=== PATIENT | male | born 1955 | race Caucasian/White ===

== ENCOUNTER → 2018-06-13 13:46 | Outpatient (CLI) | payer OTHER, SELFPAY ==
--- NOTE | 2018-06-13 13:49 | DI.RAD.S_ITS ---
PROCEDURE: XR KNEE LT 3V INDICATIONS: knee pain TECHNIQUE: 3 views of the knee were acquired. COMPARISON: [facility], CR, TIB/FIB 2V RIGHT, 05/16/2013, 8:17. [facility], RG, XR KNEE 2V LEFT, 06/13/2004, 12:36. [facility], CR, KNEE 3V RIGHT, 08/22/2011, 12:33. [facility], , XR KNEE RT 3V, 06/13/2018, 13:33. FINDINGS: Bones: Postoperative change of the left proximal tibia can be seen, with 2 screws inserted from laterally. No findings of hardware failure or hardware loosening are seen. On the sunrise view, there is mild patellofemoral joint space narrowing seen. Osteophyte formation can be seen along the margins of the patella. There is mild medial femorotibial joint space narrowing seen, with associated remodeling changes including subchondral sclerosis and osteophyte formation along the jointline. Soft tissues: No joint effusion. No suspicious soft tissue calcifications. IMPRESSION: Postoperative changes are seen. Age-appropriate degenerative changes are seen. Dictated by: Paolo Farrell M.D. on 06/13/2018 at 14:35 Approved by: Paolo Farrell M.D. on 06/13/2018 at 14:37
--- NOTE | 2018-06-13 13:49 | DI.RAD.S_ITS ---
PROCEDURE: XR KNEE RT 3V INDICATIONS: knee pain TECHNIQUE: 3 views of the knee were acquired. COMPARISON: [facility], CR, TIB/FIB 2V RIGHT, 05/16/2013, 8:17. [facility], CR, XR KNEE ARTHRITIC SERIES BI, 02/09/2017, 11:18. [facility], CR, XR KNEE LT 3V, 06/13/2018, 13:33. [facility], CR, KNEE 3V RIGHT, 08/22/2011, 12:33. FINDINGS: Bones: No fractures or dislocations. No suspicious bony lesions. There is minimal medial femorotibial joint space narrowing seen, with associated remodeling changes including subchondral sclerosis and osteophyte formation along the jointline. On the sunrise view, there is moderate to severe medial patellofemoral joint space narrowing seen. Osteophyte formation can be seen along the margins of the patella. Soft tissues: No joint effusion. No suspicious soft tissue calcifications. IMPRESSION: Osteoarthritic degenerative changes are seen, which are most prominent involving the medial patellofemoral compartment. The degenerative changes have progressed compared to 2010. Dictated by: Paolo Farrell M.D. on 06/13/2018 at 14:37 Approved by: Paolo Farrell M.D. on 06/13/2018 at 14:38
== END ==
PROVIDERS: PCP Family Medicine; Visit Provider Family Medicine
DX: M25.562 Pain in left knee (principal); M25.561 Pain in right knee; M17.11 Unilateral primary osteoarthritis, right knee
CPT/HCPCS: 73562

== ENCOUNTER 2018-07-09 10:44 | Day surgery (SDC) | payer OTHER, SELFPAY ==
[2018-07-09] VITALS (7 sets, daily range): BP systolic 86–132; BP diastolic 48–70; PULSE 47–53; RESP 13–16; TEMP 36.6–37.5; O2SAT 94–99; BMI 35.7
--- NOTE | 2018-07-09 | PATH_ITS ---
[facility] Accession Number: [id number] . 01 Material submitted: . RECTAL POLYP . 02 Diagnosis: Biopsy Rectal Polyp: Hyperplastic polyp involving two biopsy fragments. MRV/07/11/2018 . 02 Electronically signed: . Edenilson Vuong MD, Pathologist NPI- [id number] . 01 Gross description: . RECTAL POLYP: Received in formalin are multiple fragment(s) of bautista, soft tissue measuring 0.6 x 0.4 x 0.3 cm in aggregate submitted entirely in 1 cassette(s) /CKI /CKI . 02 Pathologist provided ICD-10: K62.1 . 02 CPT . 595911 Specimen Comment: A duplicate report has been generated due to demographic updates. Performed at: 01 [facility] [address] [place] [address], [place], [place] [id number] MD Richy Soares MD Phone: [phone] Performed at: [address] [facility] [address] [place], [place] [id number] MD Sebastien Aguero MD Phone: [phone]
[2018-07-09] MEDS: SODIUM CHLORIDE 0.9% 1,000 ML 200 ML IV (10:59)
--- NOTE | 2018-07-09 11:49 | PM.HP.1 ---
History of Present Illness Date Patient Seen: 07/09/18 Time Patient Seen: 11:50 Chief complaint: [id number] Narrative: Patient is a gentleman here for screening colonoscopy. He did not take his a.m. meds despite instructions. He did take his beta-richie last night. His last colonoscopy was 5 years ago. He has been having them periodically to the presence of polyps. Patient History Medical History Depression (Chronic) HLD (hyperlipidemia) (Chronic) Hypertension (Chronic) Psoriasis (Chronic) Sleep apnea (Chronic) Surgical History Stented coronary artery (Resolved) Status post arthroscopy Family & Social History Family History: Reviewed 07/09/18 by Len Justin MD Social History: household members spouse Tobacco & Substance use: Smoking Status Former smoker alcohol intake current Meds Home Medications Medication Instructions Recorded Confirmed Type aspirin 81 mg PO QDAY #0 01/14/18 07/09/18 History atorvastatin [Lipitor] 40 mg PO HS #0 01/14/18 07/09/18 History citalopram 20 mg PO QDAY #30 tab 01/14/18 07/09/18 Rx clopidogrel [Plavix] 75 mg PO QDAY #0 01/14/18 06/07/18 History trazodone 100 mg PO HS #0 01/14/18 06/07/18 History amlodipine 5 mg 01/29/18 06/07/18 History metoprolol succinate 12.5 mg 01/29/18 06/07/18 History lisinopril [Zestril] 40 mg PO QDAY #90 tab 03/25/18 07/09/18 Rx clonazepam 1 mg tablet 0.5 mg PO BID PRN #30 tab 05/28/18 07/09/18 Rx Allergies Allergy/AdvReac Type Severity Reaction Status Date / Time No Known Allergies Allergy Uncoded 06/07/18 11:52 Review of Systems Review of Systems All systems reviewed & are unremarkable except as noted in HPI and below Gastrointestinal Comments: Had a major bleed after prior colonoscopy. Exam Vital Signs (past 8 hours): - 07/09/18 11:00 Temperature 98 F Pulse Rate 53 L Respiratory Rate 16 Blood Pressure 132/70 Pulse Oximetry 99 Oxygen Delivery Method Room Air Narrative Exam Narrative: Operative her weight no apparent distress lungs clear no rales or rhonchi heart regular rate and rhythm a murmur gallop abdomen is protuberant soft nontender without mass. No hernias appreciated. Alert and oriented x3. Assessment & Plan Plan: Assessment/Plan Narrative: Plan for screening colonoscopy. I have discussed the procedure and the rationale with the patient including risks of bleeding, perforation which would necessitate a major operation, failure to find remove all lesions and the potential to tattoo. They appeared to understand and wished to proceed.
--- NOTE | 2018-07-09 11:53 | PM.PREOP ---
Pre-operative Note Interval Note Pre-op Check: Yes History & Physical exam performed today by Physician Changes: No ASA Class (for procedural sedation): III
[2018-07-09] MEDS: MIDAZOLAM 5 MG/5 ML VIAL IV (12:18)
[2018-07-09] MEDS: fentaNYL 250 MCG/5 ML INJ IV (12:19)
--- NOTE | 2018-07-09 12:22 | PM.OP.ENDO ---
Operative Date/Time/Diagnoses Date of procedure: 07/09/18 Time of procedure: 12:22 Pre-op diagnosis: Screening exam. Last colonoscopy 5-7 years Post-op diagnosis: same (One polyp in the rectum.) Procedure & Clinicians Study performed: Colonoscopy with cold biopsy Same procedure as scheduled: Yes Indications: Screening Surgeon: Len Justin Procedure Notes SCOAP/Timeout: Performed Procedure in detail: The patient was placed in the left lateral decubitus position and underwent IV sedation directed by the surgeon consisting of fentanyl and Versed. Digital exam was unremarkable. I could only feel the back half of the prostate but it felt normal.. The scope was inserted and advanced through the rectum into the sigmoid, descending, transverse, and ascending colon. The cecum was reached by a applying pressure in inserting a stiffener. identified by the ileocecal valve and the appendiceal opening. The scope was gradually brought out. The only Polyp was found in the rectum. This was at about 15 cm from the anal verge. This was repeatedly biopsied and removed. The scope ultimately was retroflexed in the rectum. The appearance was unremarkable except for prominent venous vascularity but not true hemorrhoids.. The scope was removed and the patient tolerated the procedure well Scope withdrawal time: Almost 6 min Sedation minutes: 20 Findings: polyp (Rectum) Specimen(s): other (Polyp) Complications: none Recommendations: Colonscopy in 5 years Disposition: PACU
== END 2018-07-09 13:11 | disposition home or self-care (01) ==
PROVIDERS: Family Provider Specialist; PCP Family Medicine; Visit Provider Specialist
PROC: 0DJD8ZZ Inspection of Lower Intestinal Tract, Via Natural or Artificial Opening Endoscopic (ICD-10-PCS; CPT 45378; principal; 2018-07-09 11:45)
DX: Z12.11 Encounter for screening for malignant neoplasm of colon (principal); K62.1 Rectal polyp
CPT/HCPCS: 45380; 99152; J2250; J3010

== ENCOUNTER 2018-07-17 14:00 | Outpatient (RCR) | payer OTHER, SELFPAY ==
[2018-01-29 08:10] VITALS: BP 140/76; BP 140/78; O2SAT 98; BMI 37.5
--- NOTE | 2018-01-29 11:18 | CR.IEVALNOTE ---
Addendum entered and electronically signed by Jennifer Hernandes R.N. 01/29/18 13:41: * Original Note: Addendum entered by Jennifer Hernandes R.N. 01/29/18 12:35: * Original Note: CR Initial Assessment Report 12.06.17 stent x2-circ and om CR Cardiac Rehab Initial Assessment Start: 01/29/18 08:01 Freq: Status: Active Protocol: Document 01/29/18 08:10 [facility] (Rec: 01/29/18 08:17 [facility] [id number]) Cardiac Rehabilitation Exercise Risk Risk Moderate % 12.06.2017 AICD No Pacemaker No Heart Rhythm NSR Left Arm Blood Pressure (90/60-120/80 mmHg) 140/76 H Right Arm Blood Pressure (90/60-120/80 mmHg) 140/78 H Right Resting Heart Rate: 58 Resting HR Comment: monitored Target Heart Rate: 78 Pulse Rhythm: Regular Pulse Assessment Method Pulse Ox/Monitor Respiratory Effort Non-Labored Lung Sounds: Clear bilaterally Pulse Oximetry (91-100 %) 98 CR Pre Exercise Evaluation Orientation Self Pulse Check DEVON PRE Scale Exercise Safety Equipment Orientation Warm Up/Cool Down Cardiac Rehabilitation Nutrition Evaluation Recent Lipid Blood Test Yes Date Blood Test Drawn 01/29/18 Total Cholesterol 126 Triglycerides 142 HDL 45 LDL 53 Lipid Medications Yes: LIPITOR 40MG Goal for Lipids LOWER TRIGLYCERIDES History of Diabetes No Cardiac Rehabilitation Weight Management Plan Height 175.26 cm Weight 115.212 kg Body Mass Index (BMI) 37.5 Girth Measurement (in inches) (cm) 45.5 Patient Goal(s) Lose 1-2 of Girth Lose 5-10 lbs Body Weight BMI Goal of 19-25 Vitamins & Supplements Yes Use Occasionally Intake Type beer whiskey Amount Occasionally Nutrition Evaluation Referral to Diabetes Education No Nurse/Patient Discussion Yes Diet Discussion discussed eating protein with fruit. limiting white rice sugg. basmati. Patient Following Diet Plan Yes Diet Dash Mediterranean Low-Carb Patient's Nutritional Goals almond milk, healthy oils, portion control. 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 No Hearing Ability Normal Visual Impairment No Limitations Education on Intake Chest Pain Short of Breath Lightheaded or Dizzy Musculoskeletal Pain General Malaise Tobacco Use Former, Quit <6 Months Goal/Quit Date 11.11.2017 Pack Per-Day History 3/4 x 15years Tobacco Use History Discussion Ask Assess Advise Assist Arrange Tobacco Type Used cigarettes, vaping, nicotene pouch Environmental Exposure paint fumes, smoke fumes; solvent fumes Referred to Smoking Cessation Class No CR Individual Education & Counseling Yes Educational Class Schedule Given Yes Hx Hypertension Yes Goal <130/80 Goal of BP <130/80 Yes Medications Reconciled Yes CR Psychosocial Evaluation Goal HX OF ANXIETY AND DEPRESSION Identifies Stressors Work is a good stressor though coworkers giving him a hard time with lifting heavy loads. and Jamil going through some difficult times. Psych Consult Yes Discussion with Patient Yes Psychotropic Medications Yes: Saw a psychiatrist in [place] PHQ9 Score 4 HQ Scoring Scale 0-4 = None PHQ >9 Yes PCP Notified No Comment Sees Dr. Pichardo for anxiety issues and Rx Positive Support work, 3 children and grandchildren Situation Having some difficulty with . 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 angiogram showed blockage in circ and om . stent x2. Does have a HX of anginia and SOB. At times does have pain in L chest. Alerted to let us know if this occurs at home or CR. No Treatment Change Yes: Please Continue with Cardiopulmonary Rehabilitation as Ordered Document 01/29/18 10:45 [facility] (Rec: 01/29/18 11:07 [facility] [id number]) Cardiac Rehabilitation Exercise Fall Risk History of Falling (Immediate or No Previous) Secondary Diagnosis (More Than 2 Medical Yes Diagnoses) Ambulatory Aid None/bed rest/nurse assist IV/Heparin Lock No Gait/Transferring Normal/bedrest/immobile Mental Status Oriented to own ability Score Total 15 Risk Level Low Fall Risk Action Implement [place] Fall Risk Precautions Comment Will start on physio ball with saucer next to railing and assess on ball. [place] to machines. Assistive Devices None Jaime Activity Status Index 9.89 Home Exercise No Symptoms: Joint Pain Body Alignment Posture Good Posture Ambulation Assistive Device None Orthotic/Prosthetic Devices or Brace: No Comment knees and shoulders Exercise TM METS 3.29 Angina with Exercise no Exercise Tolerance Good CR Pre Exercise Evaluation Patient Short-term Goal(s) be able to lift 8+# in 6 wks by slowly increasing weight and level of resistance band to help increase strength and endurance. 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
[2018-02-28 15:16] VITALS: BP 122/58
--- NOTE | 2018-02-28 15:48 | CR.REVALNOTE ---
CR Initial RE-Assessment Report 3..18 STENT X2 CIRC & OM CR Cardiac Rehab Re-Assessment Start: 02/28/18 15:16 Freq: Status: Active Protocol: Document 02/28/18 15:16 [facility] (Rec: 02/28/18 15:27 [facility] [id number]) Cardiac Rehab Exercise Risk Re-Eval Risk Moderate Heart Rhythm NSR Left Arm Blood Pressure (90/60-120/80 mmHg) 122/58 H Blood Pressure Method Manual Cuff/Auscultation Right Resting Heart Rate: 66 Target Heart Rate: 86 Target Heart Rate Comment: HIGH HR 125 Strength: Normal Pulse Rhythm: Regular Respiratory Effort Non-Labored Respiratory Depth Normal Angina with Exercise INTERMITTENT SPOKE WITH MD STARTED ON ISOSORBIDE AND HAS HAD RELIEF Cardiac Rehab Nutrition Re-Eval Lipids Re-Drawn No Lipid Medications Yes History of Diabetes No Weight 108.273 kg Progress to Weight Goal 7# WEIGHT LOSS Dietary Consult Yes Nurse/Patient Discussion Yes Nutrition Class Yes Dietary Goal verbalized by Patient Yes Progress Note PORTION CONTROL. LESS ALCOHOL Education Tobacco Use N/A Hypertension 130/62 Medications LISINOPRIL Education:Instruct OCHOA YES Medication Reconciled RECENT CHANGE WITH ISIOSORBIDE CR Psychosocial Re-Evaluation Progress to Goal BECAUSE HE IS ABLE TO DO MORE HE IS FEELING MORE CONFEDENT. HE IS LOOKING FORWARD TO HIS STRESS TEST SO HE CAN RETURN TO WORK. Stress Managed YES WITH EXERCISE Psych Consult No Stress Management Class Yes Uses Stress Management Skills Yes Coping Techniques Yes Relaxation Techniques Yes Positive Support Yes Note MUSCH REDUCED CP WITH NEW MED CR Psychosocial Provider Eval Treatment Prescribed for Individual Yes Needs No Treatment Change Yes: Please Continue with Cardiopulmonary Rehabilitation as Ordered Document 02/28/18 15:31 [facility] (Rec: 02/28/18 15:43 [facility] [id number]) CR Lifestyle Re-Assessment Home Exercise none Achieved Exercise Re-Evaluation KEELEY MET Goal 2.6 Nustep MET Goal 4.1 BioDex MET Goal 2.53 Rower MET Goal 10.72 Treadmill MET Goal 9.5 RPE 15 Weights 10 Bands 5 % Improvement TM 10.25; RW 11.25; BD 3.5; NS 5.0; KEELEY 3.25 Number/Value 12 LVL 6 Progress to Goal INCREASE TOLERATED % Improvement 189 Short Term Goal attained, using 10# weights, will continue to encourage to increase weights. 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 Has acheived JAIME score on Rower. Is close to Jaime score on TM.
[2018-04-17 15:33] VITALS: BP 142/72
--- NOTE | 2018-04-17 15:38 | CR.REVALNOTE ---
CR RE Assessment Report . STEMT X 2 CR Cardiac Rehab Re-Assessment Start: 02/28/18 15:16 Freq: Status: Active Protocol: Document 02/28/18 15:16 [facility] (Rec: 02/28/18 15:27 [facility] [id number]) Cardiac Rehab Exercise Risk Re-Eval Risk Moderate Heart Rhythm NSR Left Arm Blood Pressure (90/60-120/80 mmHg) 122/58 H Blood Pressure Method Manual Cuff/Auscultation Right Resting Heart Rate: 66 Target Heart Rate: 86 Target Heart Rate Comment: HIGH HR 125 Strength: Normal Pulse Rhythm: Regular Respiratory Effort Non-Labored Respiratory Depth Normal Angina with Exercise INTERMITTENT SPOKE WITH MD STARTED ON ISOSORBIDE AND HAS HAD RELIEF Cardiac Rehab Nutrition Re-Eval Lipids Re-Drawn No Lipid Medications Yes History of Diabetes No Weight 108.273 kg Progress to Weight Goal 7# WEIGHT LOSS Dietary Consult Yes Nurse/Patient Discussion Yes Nutrition Class Yes Dietary Goal verbalized by Patient Yes Progress Note PORTION CONTROL. LESS ALCOHOL Education Tobacco Use N/A Hypertension 130/62 Medications LISINOPRIL Education:Instruct OCHOA YES Medication Reconciled RECENT CHANGE WITH ISIOSORBIDE CR Psychosocial Re-Evaluation Progress to Goal BECAUSE HE IS ABLE TO DO MORE HE IS FEELING MORE CONFEDENT. HE IS LOOKING FORWARD TO HIS STRESS TEST SO HE CAN RETURN TO WORK. Stress Managed YES WITH EXERCISE Psych Consult No Stress Management Class Yes Uses Stress Management Skills Yes Coping Techniques Yes Relaxation Techniques Yes Positive Support Yes Note MUSCH REDUCED CP WITH NEW MED CR Psychosocial Provider Eval Treatment Prescribed for Individual Yes Needs No Treatment Change Yes: Please Continue with Cardiopulmonary Rehabilitation as Ordered Document 02/28/18 15:31 [facility] (Rec: 02/28/18 15:43 [facility] [id number]) CR Lifestyle Re-Assessment Home Exercise none Achieved Exercise Re-Evaluation KEELEY MET Goal 2.6 Nustep MET Goal 4.1 BioDex MET Goal 2.53 Rower MET Goal 10.72 Treadmill MET Goal 9.5 RPE 15 Weights 10 Bands 5 % Improvment TM 10.25; RW 11.25; BD 3.5; NS 5.0; KEELEY 3.25 Number/Value 12 LVL 6 Progress to Goal INCREASE TOLERATED % Improvement 189 Short Term Goal attained, using 10# weights, will continue to encourage to increase weights. 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 Has acheived JAIME score on Rower. Is close to Jaime score on TM. Document 04/17/18 15:18 [facility] (Rec: 04/17/18 15:30 [facility] [id number]) Cardiac Rehab Exercise Risk Re-Eval Dx: 3.15.18STENT X2-OM CIRC. HX: HLD Comment: Sessions 2-16 Right Resting Heart Rate: 69 Target Heart Rate: 94 Target Heart Rate Comment: High HR 127 Strength: Normal Pulse Rhythm: Regular Angina with Exercise No CR Lifestyle Re-Assessment Home Exercise Yes Mode Comment Walking Duration Comment 30 min Frequency Comment 6x/wk Achieved Exercise Re-Evaluation Rower MET Goal 18.71 Treadmill MET Goal 13.01 RPE 15 Weights 12 Bands 6 Equipment Goals TM 14.0; RW 19.0 Number/Value 15 LVL 7 Progress to Goal INCREASE TOLERATED % Improvement TM 299% RW 487% Has been out for 3 weeks, today Mets achieved: TM 3.95, RW 10.29. States that he is taking it easy because he has been working hard at work and exercising at home. Short Term Goal attained, using 12# weights, is back to performing all job functions including lifting upto 50 lbs. 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 Has been walking daily at home, and has an exercise plan at home. Document 04/17/18 15:33 [facility] (Rec: 04/17/18 15:38 [facility] [id number]) Cardiac Rehab Exercise Risk Re-Eval Risk Moderate Heart Rhythm NSR Left Arm Blood Pressure (90/60-120/80 mmHg) 142/72 H Blood Pressure Method Manual Cuff/Auscultation Angina with Exercise NO Cardiac Rehab Nutrition Re-Eval Lipids Re-Drawn No Weight 107.501 kg CR Psychosocial Re-Evaluation Progress to Goal PAST HIS WORK STRESS TEST SO MOTIVATED FOR CHANGE Stress Managed YES WITH WORK AGAIN Psych Consult No Uses Stress Management Skills Yes Coping Techniques Yes CR Psychosocial Provider Eval Treatment Prescribed for Individual Yes Needs No Treatment Change Yes: Please Continue with Cardiopulmonary Rehabilitation as Ordered Date 04/17/18
[2018-05-16 15:42] VITALS: BP 144/64
== END 2018-07-18 15:00 ==
LOC: CAR 14:00
PROVIDERS: Family Provider Specialist; PCP Family Medicine; Visit Provider Internal Medicine Cardiovascular Disease
DX: R06.02 Shortness of breath (principal)
CPT/HCPCS: 93798

== ENCOUNTER → 2018-08-30 11:26 | Outpatient (CLI) | payer OTHER, SELFPAY ==
[2018-08-30 12:16] LABS: Add Manual Diff / Slide Review NO; Eosinophils Percent Auto 0.8 % (2-4); Hematocrit 46.1 % (41-53); Hemoglobin 15.5 g/dL (13.5-17.5); Lymphocytes Percent Auto 27.5 % (25-40); Mean Corpuscular HGB Conc 33.6 % (30-36); Mean Corpuscular Hemoglobin 30.5 PG (26-34); Mean Corpuscular Volume 90.8 fL (80-100); Monocytes Percent Auto 8.5 % (3-14); Neutrophils Absolute Auto 4000 /uL (3000-5900); Neutrophils Percent Auto 62.2 % (50-75); Platelet Count 205 X10^3/uL (150-400); Red Blood Cell Count 5.08 X10^6/uL (4.5-5.9); Red Cell Distribution Width 13.9 % (11.6-14.8); White Blood Cell Count 6.4 X10^3/uL (4.5-11.0)
[2018-08-30 12:27] LABS: Hemoglobin A1C% w Est Avg Glu 5.5 % (4.0-6.0)
[2018-08-30 12:33] LABS: Alanine Aminotransferase 31 IU/L (21-72); Albumin 4.5 g/dL (3.5-5.0); Albumin Globulin Ratio 1.7 (1.0-2.8); Alkaline Phosphatase 67 U/L (38-126); Aspartate Aminotransferase 27 IU/L (17-59); BUN Creatinine Ratio 20.9 (6-22); Bilirubin Total 1.1 mg/dL (0.2-1.3); Blood Urea Nitrogen 23 mg/dL (9-20); Calcium 9.5 mg/dL (8.4-10.2); Carbon Dioxide 31 mmol/L (22-32); Chloride 104 mmol/L (98-107); Cholesterol 125 mg/dL (140-199); Estimated Glomerular Filt Rate > 60.0 mL/min (>60); Globulin 2.7 g/dL (1.7-4.1); Glucose 101 mg/dL (80-110); HDL Cholesterol 55 mg/dL (40-60); HEMOLYSIS < 15 (0-50); LDL Cholesterol Calculated 59 mg/dL (<100); Potassium 4.8 mmol/L (3.4-5.1); Sodium 144 mmol/L (137-145); Total Protein 7.2 g/dL (6.3-8.2); Triglycerides 57 mg/dL (35-150)
[2018-08-30 12:34] LABS: C-Reactive Protein Quant < 0.5 mg/dL (<1.0)
[2018-08-30 13:33] LABS: Free T3, Triiodothyronine Free 2.78 pg/mL (2.77-5.27)
[2018-08-30 13:34] LABS: Free T4, Direct Thyroxine 0.88 ng/dL (0.78-2.19)
[2018-08-30 13:47] LABS: Thyroid Stimulating Hormone 1.71 uIU/mL (0.47-4.68)
[2018-08-31 14:28] LABS: Anti Thyroglobulin Antibody < 1 IU/mL (< 2); Thyroid Peroxidase Antibodies 2 IU/mL (< 9)
[2018-08-31 15:01] LABS: Dehydroepiandrosterone Sulfate 305 mcg/dL (24-244)
[2018-09-01 15:05] LABS: Homocysteine 8.4 umol/L (< 11.4)
== END ==
PROVIDERS: PCP Family Medicine; Visit Provider Internal Medicine Cardiovascular Disease
DX: R94.02 Abnormal brain scan (principal); F34.1 Dysthymic disorder; E78.5 Hyperlipidemia, unspecified
CPT/HCPCS: 36415; 80053; 80061; 82627; 82728; 83036; 83090; 84439; 84443; 84481; 85025; 86140; 86376; 86800

== ENCOUNTER 2018-10-31 15:36 | Observation (INO) | payer OTHER, SELFPAY ==
[2018-10-31] VITALS (7 sets, daily range): BP systolic 108–168; BP diastolic 46–78; PULSE 50–77; RESP 12–21; TEMP 36.2–37; O2SAT 94–98; BMI 36.9
--- NOTE | 2018-10-31 | DI.MRI.S_ITS ---
PROCEDURE: MR STROKE Pre- and post-contrast brain MRI, non-contrast brain MR angiogram, pre- and postcontrast neck MR angiogram INDICATIONS: Amnesia TECHNIQUE: Brain: Noncontrast axial T1 spin echo, axial T2 fast spin echo, sagittal and axial FLAIR, coronal T2 fast spin echo, axial gradient echo, axial diffusion and ADC through the brain. After the administration of contrast, axial 3D VIBE of the cranial vasculature and brain. Brain MRA: Non-contrast 3-D time of flight MR angiogram, with multiple fupnpfx-prwuwecdd-zyccohzioj (MIP) reformats performed. Neck MRA: Axial and sagittal TruFISP through the neck. Coronal dynamic MR angiogram during administration of contrast in the arterial and venous phases, with 3-dimenstional hjlqlad-ptaxbnkph-laftsgrbuk (MIP) reformats constructed from subtraction images. COMPARISON: None. FINDINGS: Image quality: Excellent. BRAIN: CSF spaces: Ventricles are normal in size and shape. Basal cisterns are patent. No extra-axial fluid collections. Brain: No intracranial bleeds or mass effects. Scattered small white matter signal changes, probably represent chronic microvascular ischemic disease, versus statistically less likely demyelination or other infectious, inflammatory, neurodegenerative etiology, technically nonspecific. Gama-white matter interface is normal. Diffusion weighted images show no acute ischemic insults. Brainstem appears normal. Normal intravascular flow voids are present. No abnormal intracranial enhancement. Skull and face: Calvarial marrow signal is normal. Orbits appear normal. Sinuses: Sinuses and mastoids are clear except for a small right maxillary antrum polyp or mucous retention cyst. BRAIN MR ANGIOGRAM: Anterior circulation: Intracranial internal carotid arteries are normal in size and enhancement. The flow within the paired anterior cerebral arteries is normal and symmetric. The flow within the middle cerebral arteries is normal and symmetric. The anterior communicating artery is seen. No stenoses, occlusions, or aneurysms. Posterior circulation: There is dominant right vertebral artery. The distal left vertebral artery is not seen, probably atretic versus occluded. Basilar artery within normal limits. The flow within the posterior cerebral arteries is normal and symmetric. NECK MR ANGIOGRAM: Carotids: Great vessels demonstrate a conventional anatomy as they arise from the aortic arch. The origins of the common carotid arteries appear patent. The calibers and courses of both common carotid arteries are normal. 20-30% focal stenosis at the origin of the left internal carotid artery. No right ICA stenosis seen. Posterior circulation: High-grade focal stenosis at the origin of the right vertebral artery. The origin of the left vertebral artery is not well-visualized. 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 Normal appearing basilar artery. Miscellaneous: Subclavian arteries appear patent. Pre-contrast images through the neck show no soft tissue abnormalities. IMPRESSION: BRAIN MRI: No evidence of acute ischemia. Diffuse small white matter signal changes, probably represent chronic microvascular ischemic disease, versus statistically less likely demyelination or other infectious, inflammatory, neurodegenerative etiology, technically nonspecific. BRAIN MR ANGIOGRAM: Negative exam NECK MR ANGIOGRAM: Dominant right vertebral artery. 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 20-30% focal stenosis at the origin of the left ICA. No right ICA stenosis. High-grade focal stenosis at the origin of the right vertebral artery probably 80% or greater. Dictated by: Tyree Moore M.D. on 11/01/2018 at 9:36 Approved by: Tyree Moore M.D. on 11/01/2018 at 9:46
--- NOTE | 2018-10-31 15:42 | DI.CT.S_ITS ---
PROCEDURE: CT HEAD/BRAIN WO CON INDICATIONS: Confusion TECHNIQUE: Noncontrast 4.5 mm thick angled axial sections acquired from the foramen magnum to the vertex, with coronal and sagittal reformats. For radiation dose reduction, the following was used: automated exposure control, adjustment of mA and/or kV according to patient size. COMPARISON: None. FINDINGS: Image quality: Excellent. CSF spaces: Basal cisterns are patent. No extra-axial fluid collections. Ventricles are normal in size and shape. Brain: No midline shift. No intracranial masses or hemorrhage. Gama-white matter interface is normal. A subtle area of low attenuation within the deep white matter of the right frontal lobe is present (image 17, series 2). A similar appearance is noted within the deep white matter of the left frontal lobe (image 20, series 2). Mild basal ganglia calcifications are noted. Skull and face: Calvarium and visualized facial bones are intact, without suspicious lesions. Sinuses: Visualized sinuses and mastoids are clear. IMPRESSION: 1. No acute intracranial hemorrhage. 2. Probable chronic small vessel ischemic changes. Dictated by: Cristhian Manrique M.D. on 10/31/2018 at 15:15 Approved by: Cristhian Manrique M.D. on 10/31/2018 at 15:17
--- NOTE | 2018-10-31 16:03 | ED_ITS ---
HPI - Neuro Symptoms/Deficit General Chief Complaint: Neuro Symptoms/Deficit Stated Complaint: CONFUSION Time Seen by Provider: 10/31/18 15:42 Source: patient and family Mode of arrival: ambulatory Limitations: no limitations History of Present Illness HPI Narrative: Patient is a 63-year-old male here with his for evaluation of being confused. Patient's states that the last time she saw him normal was last evening. She did not see him this morning. 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 Fall we could extrapolate his last known normal was approximately 130 this afternoon but this is uncertain. Patient here with confusion and not being able to remember things. He did ambulate in without any problems. He denies any other symptoms. On Anticoagulants: Yes (asa,plavix) Related Data Home Medications Medication Instructions Recorded Confirmed aspirin 81 mg PO DAILY #0 01/14/18 10/31/18 atorvastatin [Lipitor] 40 mg PO BEDTIME #0 01/14/18 10/31/18 clopidogrel [Plavix] 75 mg PO DAILY #0 01/14/18 10/31/18 trazodone 50 - 200 mg PO BEDTIME #0 01/14/18 10/31/18 amlodipine 5 mg PO DAILY 10/31/18 10/31/18 citalopram 30 mg PO DAILY 10/31/18 10/31/18 lisinopril [Zestril] 40 mg PO DAILY 10/31/18 10/31/18 metoprolol succinate 12.5 mg PO DAILY 10/31/18 10/31/18 sildenafil (antihypertensive) 100 mg PO DAILY PRN 10/31/18 10/31/18 Previous Rx's Medication Instructions Recorded clonazepam 1 mg tablet 0.5 mg PO BID PRN #30 tab 10/23/18 Allergies Allergy/AdvReac Type Severity Reaction Status Date / Time No Known Drug Allergies Allergy Verified 10/31/18 15:49 Review of Systems Constitutional Denies fatigue, Denies fever(s), Denies headache(s) and Denies weakness Eyes Denies blurry vision, Denies diplopia and Denies loss of vision ENT Ears, Nose, Mouth, and Throat: Denies abnormal hearing, Denies vertigo, Denies dizziness, Denies headache(s), Denies disequilibrium and Denies sore throat Cardiovascular Denies chest pain, Denies syncope, Denies palpitations and Denies dyspnea Respiratory Denies dyspnea Gastrointestinal Gastrointestinal: Denies abdominal pain, Denies nausea and Denies vomiting Genitourinary Denies dysuria Musculoskeletal Denies abnormal gait, Denies myalgias, Denies arthralgias and Denies numbness Integumentary/Breasts Denies lesions and Denies rash Neurologic Denies abnormal hearing, Denies abnormal movements, Denies abnormal speech, Denies abnormal gait, Reports behavioral changes, Reports confusion, Denies vertigo, Denies dizziness, Denies syncope, Denies headache(s), Denies lack of coordination, Denies focal weakness, Denies loss of vision, Reports memory loss, Denies numbness, Denies radicular pain, Denies convulsions, Denies seizure-like activity, Denies sensory deficit, Denies paresthesias, Denies disequilibrium and Denies weakness Psychiatric Denies anxiety, Reports behavioral changes, Reports confusion and Reports memory loss Endocrine Denies fatigue and Denies palpitations Hematologic/Lymphatic Comments: Not on anticoagulation Allergic/Immunologic Denies urticaria PFSH Medical History Obesity (Chronic) Obstructive sleep apnea (Chronic 08/16/11) Psoriasis (Chronic 08/16/11) Chronic sinusitis (Chronic) Hyperlipidemia (Chronic) Coronary artery disease (Chronic ~11/2017) Major depressive disorder (Chronic 08/16/11) Hypertension (Chronic 03/02/14) Neuropathy (Chronic 12/11/14) Generalized anxiety disorder (Chronic 09/26/17) Depression (Chronic) HLD (hyperlipidemia) (Chronic) Hypertension (Chronic) Psoriasis (Chronic) Sleep apnea (Chronic) Surgical History Stented coronary artery (Resolved) Status post arthroscopy Family History Sister Hypertension Social History marital status: household members: spouse Smoking Status: Former smoker alcohol intake: current (ON OCCASION ) substance use type: does not use Social History marital status: household members: spouse Smoking Status: Former smoker alcohol intake: current (ON OCCASION ) substance use type: does not use Exam Initial Vital Signs Initial Vital Signs: Vital Signs Temperature 97.5 F L 10/31/18 15:40 Pulse Rate 77 10/31/18 15:40 Respiratory Rate 15 10/31/18 15:40 Blood Pressure 168/76 H 10/31/18 15:40 Pulse Oximetry 95 10/31/18 15:40 Const General: cooperative, healthy appearing, comfortable, well developed, well groomed and No acute distress Orientation: alert, awake, oriented to person, oriented to place, not oriented to time and confused HENAZ Head: normal to inspection and normocephalic Nose: external nose normal Face and sinus: normal facial exam Mouth: oral mucosae normal Eyes Pupils: PERRL EOM: EOM intact bilaterally Resp Effort & Inspection: normal respiratory effort Auscultation: clear to auscultation bilaterally Cardio Rate: regular rate Rhythm: regular rhythm Pulses: radial pulses present GI Inspection: non-distended Palpation: soft, No firm and No tender Skin Lesions: no lesions Rashes: no rashes Neuro General: alert, awake, no focal motor deficits, CN's II-XI intact bilaterally and confused Speech: speech normal Gait: normal gait Motor: muscle tone normal throughout Sensory Exam: no sensory deficits noted Other: See NIH score for neurologic exam. Patient remembers his birthday however does not know the year does not know the month does not know the president. He knows that he is in [place]. He recognizes that he is confused. He does not remember what he had for dinner last night or for breakfast yesterday morning. He does not remember what he had for breakfast this morning. He was able to name 2 objects however was unable to recall those objects just a few minutes later. He knows his 's name but does not know her date. Extrem General: normal to inspection and capillary refill normal Psych Appearance: grossly normal and well kempt Scores GCS Angelica coma scale eye opening: Spontaneous [place] coma scale verbal response: Orientated [place] coma scale motor response: Obey commands Angel[place] coma scale total score: 15 NIH Stroke Scale Level of Conciousness: Alert, keenly responsive Ask month/age: Answers one question correctly, intubated follow commands Open/close eyes, close hand: Performs both tasks correctly Best gaze horizontal: Normal Visual [place]: No visual loss Facial palsy: Normal symetrical movement Left arm drift: No drift for full 10 sec Right arm drift: No drift for full 10 sec Left leg drift: No drift for full 10 sec Right leg drift: No drift for full 10 sec Limb ataxia: Absent Sensory on face/arms/legs: Normal, no sensory loss Best language: No aphasia, normal Dysarthria: Normal Extinction or inattention: No abnormality Total NIH Stroke scale score: 1 Course Orders Ordered: ED Orders 10/31/18 15:42 CT head/brain wo con Stat 10/31/18 15:43 EKG-12 Lead Stat 10/31/18 15:55 Basic Metabolic Panel Stat Complete Blood Count AUTO DIFF Stat Ethanol (ETOH) Stat Partial Thromboplastin Time Stat Prothrombin Time INR Stat 10/31/18 16:02 Urine Drug Screen, Rapid Stat 10/31/18 16:34 Ammonia (NH3) Stat Vital Signs - 8 hr 10/31/18 15:40 10/31/18 16:19 Temperature 97.5 F L Pulse Rate 77 65 Respiratory Rate 15 12 Blood Pressure 168/76 H Blood Pressure [Right Arm] 153/74 H Pulse Oximetry 95 96 MDM - Neuro Symptoms/Deficit Lab Data Attestation: I reviewed the patient's lab results. Result diagrams: 10/31/18 15:55 10/31/18 15:55 Lab Results 10/31/18 10/31/18 10/31/18 Range/Units 15:55 15:55 15:55 WBC 8.8 (4.5-11.0) X10^3/uL RBC 5.04 (4.5-5.9) X10^6/uL Hgb 15.4 (13.5-17.5) g/dL Hct 45.4 (41-53) % MCV 90.0 (80-100) fL MCH 30.6 (26-34) PG MCHC 34.0 (30-36) % RDW 13.5 (11.6-14.8) % Plt Count 218 (150-400) X10^3/uL Neut % (Auto) 62.6 (50-75) % Lymph % (Auto) 28.4 (25-40) % [place] % (Auto) 7.4 (3-14) % Eos % (Auto) 0.9 L (2-4) % Baso % (Auto) 0.7 (0-2) % Neut # (Auto) 5500 (6933-4296) /uL Lymph # (Auto) 2500 (1244-9614) /uL [place] # (Auto) 600 (0-900) /uL Eos # (Auto) 100 (0-450) /uL Baso # (Auto) 100 (0-100) /uL PT 11.1 (10.1-12.7) SECONDS INR 1.0 (0.9-1.3) APTT 37 H (26.4-36.2) SECONDS Sodium 138 (137-145) mmol/L Potassium 3.6 (3.4-5.1) mmol/L Chloride 102 (98-107) mmol/L Carbon Dioxide 26 (22-32) mmol/L BUN 18 (9-20) mg/dL Creatinine 0.90 (0.66-1.25) mg/dL Estimated GFR > 60.0 (>60) mL/min BUN/Creatinine Ratio 20.0 (6-22) Glucose 99 (80-110) mg/dL Calcium 9.4 (8.4-10.2) mg/dL Ammonia (9-30) umol/L Ethyl Alcohol < 10 mg/dL 10/31/18 Range/Units 16:34 WBC (4.5-11.0) X10^3/uL RBC (4.5-5.9) X10^6/uL Hgb (13.5-17.5) g/dL Hct (41-53) % MCV (80-100) fL MCH (26-34) PG MCHC (30-36) % RDW (11.6-14.8) % Plt Count (150-400) X10^3/uL Neut % (Auto) (50-75) % Lymph % (Auto) (25-40) % [place] % (Auto) (3-14) % Eos % (Auto) (2-4) % Baso % (Auto) (0-2) % Neut # (Auto) (9190-7613) /uL Lymph # (Auto) (4952-7756) /uL [place] # (Auto) (0-900) /uL Eos # (Auto) (0-450) /uL Baso # (Auto) (0-100) /uL PT (10.1-12.7) SECONDS INR (0.9-1.3) APTT (26.4-36.2) SECONDS Sodium (137-145) mmol/L Potassium (3.4-5.1) mmol/L Chloride (98-107) mmol/L Carbon Dioxide (22-32) mmol/L BUN (9-20) mg/dL Creatinine (0.66-1.25) mg/dL Estimated GFR (>60) mL/min BUN/Creatinine Ratio (6-22) Glucose (80-110) mg/dL Calcium (8.4-10.2) mg/dL Ammonia 12.0 (9-30) umol/L Ethyl Alcohol mg/dL Point of Care Testing Glucose POC [address] scan - head: Radiologist's impression: PROCEDURE: CT HEAD/BRAIN WO CON INDICATIONS: Confusion TECHNIQUE: Noncontrast 4.5 mm thick angled axial sections acquired from the foramen magnum to the vertex, with coronal and sagittal reformats. For radiation dose reduction, the following was used: automated exposure control, adjustment of mA and/or kV according to patient size. COMPARISON: None. FINDINGS: Image quality: Excellent. CSF spaces: Basal cisterns are patent. No extra-axial fluid collections. Ventricles are normal in size and shape. Brain: No midline shift. No intracranial masses or hemorrhage. Gama-white matter interface is normal. A subtle area of low attenuation within the deep white matter of the right frontal lobe is present (image 17, series 2). A similar appearance is noted within the deep white matter of the left frontal lobe (image 20, series 2). Mild basal ganglia calcifications are noted. Skull and face: Calvarium and visualized facial bones are intact, without suspicious lesions. Sinuses: Visualized sinuses and mastoids are clear. IMPRESSION: 1. No acute intracranial hemorrhage. 2. Probable chronic small vessel ischemic changes. Dictated by: Cristhian Manrique M.D. on 10/31/2018 at 15:15 Approved by: Cristhian Manrique M.D. on 10/31/2018 at 15:17 ECG Data Attestation: I personally reviewed and interpreted this ECG as follows: Prior ECG tracings: not available for review Interpretation: Sinus rhythm Ventricular rate is 66 Normal axis Normal intervals Normal QRS Normal QTC No ST T wave changes MDM Narrative Medical decision making narrative: 63-year-old male. Unsure as the exact onset of his symptoms. He has a normal neurologic exam except for retrograde and anterograde amnesia. Head CT is unremarkable. Labs are unremarkable. UDS pe nding at time of admission. NIH score of 2. Mold on tPA secondary to the lack of the onset of his symptoms and also the lack of other neurologic symptoms. I have a high suspicion for transient global amnesia. No signs of trauma. Patient not intoxicated. No signs of toxic ingestions. Discussed the case with Dr roach will admit for further evaluation and treatment. Discussed the case with the patient's expressed understanding and agreement. Discharge Plan Departure Patient Disposition: Admitted as Observation Clinical Impression: Global amnesia
[2018-10-31 16:10] LABS: Prothrombin Time 11.1 SECONDS (10.1-12.7)
[2018-10-31 16:13] LABS: Blood Urea Nitrogen 18 mg/dL (9-20); Calcium 9.4 mg/dL (8.4-10.2); Carbon Dioxide 26 mmol/L (22-32); Chloride 102 mmol/L (98-107); Estimated Glomerular Filt Rate > 60.0 mL/min (>60); Ethanol (ETOH) < 10 mg/dL; Glucose 99 mg/dL (80-110); HEMOLYSIS < 15 (0-50); PTT Partial Thromboplastin Tim 37 SECONDS (26.4-36.2); Potassium 3.6 mmol/L (3.4-5.1); Sodium 138 mmol/L (137-145)
--- NOTE | 2018-10-31 16:15 | PC.NURSE ---
1555 MD Melvin at bedside. reports that the patient's coworker has jsut called ehr. he states the patient was normal when he left work at 1330. MD Melvin aware.
--- NOTE | 2018-10-31 16:16 | PC.NURSE ---
Patient experiencing sever difficulty with his memory. Short term memory is impaired and cannot remember events that occurred 15 seconds earlier. He can reports his name, date of , 's name but does not know the year, day, month, president, or most events from today or the past week. Today all he remembers is did I take a shower when I got home? He states I just don't feel right, everything is fuzzy. Like I can't even tell you what day it is. Repeats this phrase every few minutes.
[2018-10-31 16:19] LABS: Add Manual Diff / Slide Review NO; Basophils Absolute Auto 100 /uL (0-100); Basophils Percent Auto 0.7 % (0-2); Eosinophils Absolute Auto 100 /uL (0-450); Eosinophils Percent Auto 0.9 % (2-4); Hematocrit 45.4 % (41-53); Hemoglobin 15.4 g/dL (13.5-17.5); Lymphocytes Absolute Auto 2500 /uL (1100-4500); Lymphocytes Percent Auto 28.4 % (25-40); Mean Corpuscular Hemoglobin 30.6 PG (26-34); Monocytes Absolute Auto 600 /uL (0-900); Monocytes Percent Auto 7.4 % (3-14); Neutrophils Absolute Auto 5500 /uL (1500-7000); Neutrophils Percent Auto 62.6 % (50-75); Platelet Count 218 X10^3/uL (150-400); Red Blood Cell Count 5.04 X10^6/uL (4.5-5.9); Red Cell Distribution Width 13.5 % (11.6-14.8); White Blood Cell Count 8.8 X10^3/uL (4.5-11.0)
[2018-10-31 17:21] LABS: Urine Amphetamines Negative (Negative); Urine Barbiturates Negative (Negative); Urine Benzodiazepines Negative (Negative); Urine Cocaine Negative (Negative); Urine MDMA Negative (Negative); Urine Methadone Negative (Negative); Urine Methamphetamines Negative (Negative); Urine Morphine/Opi cutoff 2000 Negative (Negative); Urine Oxycodone Negative (Negative); Urine Phencyclidine Negative (Negative); Urine Tetrahydrocannabinol Negative (Negative); Urine Tricyclic Antidepressant Negative (Negative)
--- NOTE | 2018-10-31 17:43 | P.HP_ITS ---
History of Present Illness Date Patient Seen: 10/31/18 Time Patient Seen: 17:37 Chief complaint: CONFUSION Narrative: Patient presented to the [facility] Emergency Department on October 31, 2018 with difficulty with his memory. He was last known to be normal by his spouse earlier in the morning and she spoke with his coworkers and apparently they did not notice anything abnormal today. He drove himself home from work and took a shower but shortly thereafter was complaining that s omething was wrong and clearly his memory was not working correctly. At that point he was transported to the [facility] Emergency Department. He has some difficulty remembering the events earlier in the day some are more clear than others. No other specific neurologic symptoms present No Headache No prior history of anything like this Patient with known vascular disease status post cardiac stent placement in early 2017, just under a year ago Patient History Medical History Coronary artery disease (Chronic ~11/2017) Hypertension (Chronic 03/02/14) Hyperlipidemia (Chronic) Obstructive sleep apnea (Chronic 08/16/11) Obesity (Chronic) Neuropathy (Chronic 12/11/14) Psoriasis (Chronic 08/16/11) Chronic sinusitis (Chronic) Major depressive disorder (Chronic 08/16/11) Generalized anxiety disorder (Chronic 09/26/17) Surgical History Stented coronary artery (Inactive) Status post arthroscopy Family History Sister Hypertension Social History marital status: household members: spouse Smoking Status: Former smoker alcohol intake: current (ON OCCASION ) substance use type: does not use Family & Social History Family History Sister Hypertension Social History: household members spouse Safety & Behavioral: Feels Safe in Current Yes Environment Been Physically Hurt or No Threatened By a Person Tobacco & Substance use: Smoking Status Former smoker alcohol intake current Meds Home Medications Medication Instructions Recorded Confirmed Type aspirin 81 mg PO DAILY #0 01/14/18 10/31/18 History atorvastatin [Lipitor] 40 mg PO BEDTIME #0 01/14/18 10/31/18 History clopidogrel [Plavix] 75 mg PO DAILY #0 01/14/18 10/31/18 History trazodone 50 - 200 mg PO BEDTIME #0 01/14/18 10/31/18 History clonazepam 1 mg tablet 0.5 mg PO BID PRN #30 tab 10/23/18 10/31/18 Rx amlodipine 5 mg PO DAILY 10/31/18 10/31/18 History citalopram 30 mg PO DAILY 10/31/18 10/31/18 History lisinopril [Zestril] 40 mg PO DAILY 10/31/18 10/31/18 History metoprolol succinate 12.5 mg PO DAILY 10/31/18 10/31/18 History sildenafil (antihypertensive) 100 mg PO DAILY PRN 10/31/18 10/31/18 History Allergies Allergy/AdvReac Type Severity Reaction Status Date / Time No Known Drug Allergies Allergy Verified 10/31/18 15:49 Review of Systems Constitutional Constitutional: Denies excessive sweating, Denies fever(s), Denies headache(s), Denies weakness, Denies weight gain and Denies weight loss Eyes Eyes: Denies change in vision, Denies loss of vision and Denies other visual disturbances ENT Ears, Nose, Mouth, and Throat: No difficulty swallowing, No headache(s) and No n maria del carmen pain Cardiovascular Cardiovascular: Denies chest pain, Denies fainting, Denies fast heart rate, Denies irregular heart rhythm, Denies rapid, pounding, or irregular heartbeat, Denies shortness of breath, Denies shortness of breath with activity and Denies slow heart rate Respiratory Respiratory: Denies dyspnea and Denies dyspnea on exertion Gastrointestinal Gastrointestinal: Denies abdominal pain, Denies bloating, Denies change in bowel habits, Denies change in stool character, Denies dysphagia, Denies nausea, Denies vomiting and Denies hematemesis Genitourinary Genitourinary: Denies hematuria, Denies difficulty urinating and Denies urinary frequency Musculoskeletal Musculoskeletal: Denies abnormal gait, Denies myalgias, Denies arthralgias, Denies limited range of motion, Denies neck pain and Denies numbness Integumentary/Breasts Skin/Breast: Denies bleeding lesions, Denies change in pigmentation, Denies changing lesions, Denies new lesions, Denies rash, Denies skin swelling, Denies sores and Denies jaundice Neurologic Neurologic: Reports as per HPI, Denies abnormal speech, Denies abnormal gait, Denies behavioral changes, Denies syncope, Denies headache(s), Denies lack of coordination, Denies loss of vision, Reports memory loss, Denies numbness, Denies seizure-like activity, Denies paresthesias and Denies weakness Psychiatric Psychiatric: Denies behavioral changes, Denies change in appetite, Denies difficulty concentrating, Denies auditory hallucinations, Reports memory loss, Denies mood swings and Denies suicidal ideation Endocrine Endocrine: Denies excessive sweating and Denies palpitations Hematologic/Lymphatic Hematologic/Lymphatic: Denies easy bleeding, Denies easy bruising and Denies lymphadenopathy Exam Vital Signs (past 8 hours): - 10/31/18 15:40 10/31/18 16:19 10/31/18 17:25 Temperature 97.5 F L Pulse Rate 77 65 64 Respiratory Rate 15 12 12 Blood Pressure 168/76 H Blood Pressure [Right Arm] 153/74 H 156/77 H Pulse Oximetry 95 96 96 Oxygen Delivery Method Room Air Const General: cooperative, healthy appearing, comfortable, well developed and well groomed Nutritional Appearance: well nourished Orientation: alert, awake and oriented to person [facility] Head: normocephalic, atraumatic, No cyanosis of lips/distal nose, No raccoon eyes and No periorbital ecchymosis Ears: hearing grossly normal bilaterally and external ears normal Nose: external nose normal and nares normal Face and sinus: normal facial exam and face symmetric Mouth: oral mucosae normal, lip normal and tongue normal Eyes Alignment and Position: alignment normal Periorbital: periorbital findings normal Eyelids: eyelids normal Conjunctivae: conjunctivae normal Sclera: sclerae normal Cornea: corneas normal Pupils: PERRL EOM: EOM intact bilaterally Neck Neck: normal visual inspection, full ROM, trachea midline and No anterior neck swelling Thyroid: not diffusely enlarged Carotids: normal carotid upstroke Lymphatic: No lymphadenopathy Chest Chest: normal inspection of the chest, No crepitus and No tenderness Breast inspection: normal inspection of the breasts Resp Effort & Inspection: normal respiratory effort, able to speak in complete sentences, no audible wheezes, no cough, no retractions and not tachypneic Auscultation: clear to auscultation bilaterally, no rales, no rhonchi, no wheezes and no rubs Percussion: percussion normal Tactile Fremitus: tactile fremitus absent Cardio Palpation: normal PMI Rate: regular rate Rhythm: regular rhythm Heart Sounds: S1 normal, S2 normal and normal, physiologic split S2 Bruits: no carotid bruits Pulses: brachial pulses present and radial pulses present GI Inspection: normal to inspection Palpation: soft and no hepatosplenomegaly Percussion: normal to percussion Auscultation: normal bowel sounds Back/Spine/Pelvis Back: No CVA tenderness Cervical Spine: normal cervical lordosis Thoracic/Lumbar Spine: thoracic and lumbar spine normal to inspection Skin General: no rashes or lesions noted, No excoriations, No induration, No jaundice, No mottling and No petechiae Lesions: no lesions (no worrisome/abl lesions) Rashes: no rashes Trauma: no lacerations or abrasions Wounds: no wounds Hair: normal Neuro General: alert, awake, oriented (person/place), tone normal, moves all extremities, normal light touch, pain and propioception and no focal motor deficits Cranial Nerves: CN's II-XI intact bilaterally Speech: speech normal Motor: muscle tone normal throughout Sensory Exam: no sensory deficits noted DTR's: Rt Biceps: 2+, Lt Biceps: 2+, Rt Brachioradialis: 2+, Lt Brachioradialis: 2+, Rt Patellar: 2+ and Lt Patellar: 2+ Extrem General: normal to inspection, no clubbing, cyanosis or edema and No calf tenderness Right upper extremity: normal to inspection Left upper extremity: normal to inspection Right lower extremity: normal to inspection Left lower extremity: normal to inspection Psych Appearance: grossly normal Mental Status: mental status grossly normal Speech and Movement: speech and movement normal and speech clear Mood: congruent mood Affect: normal affect Attitude: cooperative Thought Process: normal Thought Content: normal Judgment: judgment good Objective Labs Result Diagrams: 10/31/18 15:55 10/31/18 15:55 Labs: Laboratory Results - last 24 hr 10/31/18 10/31/18 10/31/18 15:55 15:55 15:55 WBC 8.8 RBC 5.04 Hgb 15.4 Hct 45.4 MCV 90.0 MCH 30.6 MCHC 34.0 RDW 13.5 Plt Count 218 Neut % (Auto) 62.6 Lymph % (Auto) 28.4 [place] % (Auto) 7.4 Eos % (Auto) 0.9 L Baso % (Auto) 0.7 Neut # (Auto) 5500 Lymph # (Auto) 2500 [place] # (Auto) 600 Eos # (Auto) 100 Baso # (Auto) 100 PT 11.1 INR 1.0 APTT 37 H Sodium 138 Potassium 3.6 Chloride 102 Carbon Dioxide 26 BUN 18 Creatinine 0.90 Estimated GFR > 60.0 BUN/Creatinine Ratio 20.0 Glucose 99 Calcium 9.4 Ammonia Urine Opiates Screen Ur Oxycodone Screen Urine Methadone Screen Ur Barbiturates Screen U Tricyclic Antidepress Ur Phencyclidine Scrn Ur Amphetamines Screen U Methamphetamines Scrn Ur MDMA Scrn (Ecstasy) U Benzodiazepines Scrn Urine Cocaine Screen U Marijuana (THC) Screen Ethyl Alcohol < 10 10/31/18 10/31/18 16:34 17:00 WBC RBC Hgb Hct MCV MCH MCHC RDW Plt Count Neut % (Auto) Lymph % (Auto) [place] % (Auto) Eos % (Auto) Baso % (Auto) Neut # (Auto) Lymph # (Auto) [place] # (Auto) Eos # (Auto) Baso # (Auto) PT INR APTT Sodium Potassium Chloride Carbon Dioxide BUN Creatinine Estimated GFR BUN/Creatinine Ratio Glucose Calcium Ammonia 12.0 Urine Opiates Screen Negative Ur Oxycodone Screen Negative Urine Methadone Screen Negative Ur Barbiturates Screen Negative U Tricyclic Antidepress Negative Ur Phencyclidine Scrn Negative Ur Amphetamines Screen Negative U Methamphetamines Scrn Negative Ur MDMA Scrn (Ecstasy) Negative U Benzodiazepines Scrn Negative Urine Cocaine Screen Negative U Marijuana (THC) Screen Negative Ethyl Alcohol Assessment & Plan Plan: 1. 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 Initial workup has been negative in the ER. Continue to monitor here in the hospital but obtain MRI with angiography to rule out stroke. Sometimes this can be confused with postictal state after seizure although there is no evidence of that in this case. I will add a prolactin to his ER labs. His urine tox screen is normal suggesting there is no evidence of medication reaction or issue here, which seem to be unlikely based on patient's history as well. 2. Patient's other medical conditions including his coronary artery disease is hypertension hyperlipidemia etc appear to be adequately controlled. Somewhat hypertensive although of course is probably reflective of his concern over his memory loss and being in the hospital. Continue his usual medications. Scores NIHSS Level of Conciousness: Alert, keenly responsive Ask month/age: Answers one question correctly, intubated follow commands Open/close eyes, close hand: Performs both tasks correctly Best gaze horizontal: Normal Visual cavanaugh: No visual loss Facial palsy: Normal symetrical movement Left arm drift: No drift for full 10 sec Right arm drift: No drift for full 10 sec Left leg drift: No drift for full 10 sec Right leg drift: No drift for full 10 sec Limb ataxia: Absent Sensory on face/arms/legs: Normal, no sensory loss Best language: No aphasia, normal Dysarthria: Normal Extinction or inattention: No abnormality Total NIH Stroke scale score: 1
--- NOTE | 2018-10-31 18:18 | PC.NURSE ---
La shift note: Received patient to room 207 from ER via [facility]. Patient awake, alert, and calm. Ambulated from gurney to bed in steady gait. Voided independenlty. No dizziness, pain or discomfort. Oriented to self, place, situation. Is unaware of date, year or time. States Geri is the sitting President. at bedside providing supportive care. Patient is aware he is forgetful, he states he feels discombobulated. He was able to recall how he got to [facility] and recalled events leading up to admission. No sensory or motor deficits noted. Repeats phrases. Oriented to room, environment, and plan of care. Due to forgetfulness, fall precautions initiated. However not impulsive. Call light and personal items within reach. MRI pending. Will cont. to monitor closely.
[2018-10-31] MEDS: TRAZODONE 50 MG TABLET PO (20:23)
[2018-10-31] MEDS: ATORVASTATIN 20 MG TABLET 40 MG PO (20:23)
[2018-10-31 20:57] LABS: Prolactin 22.6 ng/mL (3.7-17.9)
[2018-11-01 04:18] VITALS: BP 126/61; PULSE 51; RESP 17; TEMP 36.8; O2SAT 97
--- NOTE | 2018-11-01 05:46 | PC.NURSE ---
Pt. so far has been alert and oriented with GCS of 15 and NIH of 0. Pt. still has no recollection of how he end up here in the hospital. He remembered coming home from work and took a shower and telling his that he did not feel alright. VSS. Will have an Head MRI today.
[2018-11-01 07:55] VITALS: BP 141/72; PULSE 55; RESP 16; TEMP 36.8; O2SAT 97
[2018-11-01] MEDS: SODIUM CHLORIDE 0.9% FLUSH 10 ML IV (08:39)
[2018-11-01] MEDS: AMLODIPINE 5 MG TABLET PO (08:41)
[2018-11-01] MEDS: CLOPIDOGREL 75 MG TABLET PO (08:41)
[2018-11-01] MEDS: ASPIRIN EC 81 MG TABLET PO (08:41)
[2018-11-01] MEDS: CITALOPRAM 20 MG TABLET 30 MG PO (08:41)
[2018-11-01] MEDS: LISINOPRIL 20 MG TABLET 40 MG PO (08:41)
[2018-11-01 08:46] VITALS: O2SAT 99
[2018-11-01 11:00] VITALS: BP 144/68; PULSE 59; RESP 18; TEMP 37.2; O2SAT 96
--- NOTE | 2018-11-01 11:10 | PC.NURSE ---
Addendum entered by Jayashree Carlos R.N. 11/01/18 11:16: Pt requested to have his scheduled Metoprolol dose changed to HS as per his normal schedule. Pharmacy called and dose time changed. Original Note: Day Shift- Pt A&OX4, follows command, NIH score 0, States continues to not remember events from home to ED. Denies pain, nausea, chest pain, dizziness, light-headedness, vision changes. Low fall risk, ambulating in room indep with steady gait. Went to MRI at 0850. No voiced concerns at this time. Will monitor.
--- NOTE | 2018-11-01 12:48 | PM.DS.1 ---
History of Present Illness Chief complaint: CONFUSION Discharge Providers Date of admission: 10/31/18 17:19 Primary care physician: Pino Pichardo MD Discharge provider: Pino Pichardo MD Discharge Date: 11/01/18 Exam Vital Signs (past 8 hours): - 11/01/18 07:55 11/01/18 08:46 11/01/18 11:00 Temperature 98.3 F 98.9 F Pulse Rate 55 L 59 L Respiratory Rate 16 18 Blood Pressure 141/72 H 144/68 H Pulse Oximetry 97 99 96 Oxygen Delivery Method Room Air Oxygen Flow Rate 0 Objective Imaging MRI - head: Radiologist's impression: [address] [address] Magnetic Resonance Report Signed Patient: Cesario Zaldivar MR#: [id number] : 1955 Acct:[id number] Age/Sex: 63 / M Date of Service: 10/31/18 Loc: 207-1 Accession Number: [id number] Procedure: MR stroke Ordering Provider: Alex Lovelace MD PROCEDURE: MR STROKE Pre- and post-contrast brain MRI, non-contrast brain MR angiogram, pre- and postcontrast neck MR angiogram INDICATIONS: Amnesia TECHNIQUE: Brain: Noncontrast axial T1 spin echo, axial T2 fast spin echo, sagittal and axial FLAIR, coronal T2 fast spin echo, axial gradient echo, axial diffusion and ADC through the brain. After the administration of contrast, axial 3D VIBE of the cranial vasculature and brain. Brain MRA: Non-contrast 3-D time of flight MR angiogram, with multiple trqesaa-hbbsjcghe-qqvcspspdz (MIP) reformats performed. Neck MRA: Axial and sagittal TruFISP through the neck. Coronal dynamic MR angiogram during administration of contrast in the arterial and venous phases, with 3-dimenstional shpeqam-bkwdgbklr-jbqqkhpaap (MIP) reformats constructed from subtraction images. COMPARISON: None. FINDINGS: Image quality: Excellent. BRAIN: CSF spaces: Ventricles are normal in size and shape. Basal cisterns are patent. No extra-axial fluid collections. Brain: No intracranial bleeds or mass effects. Scattered small white matter signal changes, probably represent chronic microvascular ischemic disease, versus statistically less likely demyelination or other infectious, inflammatory, neurodegenerative etiology, technically nonspecific. Gama-white matter interface is normal. Diffusion weighted images show no acute ischemic insults. Brainstem appears normal. Normal intravascular flow voids are present. No abnormal intracranial enhancement. Skull and face: Calvarial marrow signal is normal. Orbits appear normal. Sinuses: Sinuses and mastoids are clear except for a small right maxillary antrum polyp or mucous retention cyst. BRAIN MR ANGIOGRAM: Anterior circulation: Intracranial internal carotid arteries are normal in size and enhancement. The flow within the paired anterior cerebral arteries is normal and symmetric. The flow within the middle cerebral arteries is normal and symmetric. The anterior communicating artery is seen. No stenoses, occlusions, or aneurysms. Posterior circulation: There is dominant right vertebral artery. The distal left vertebral artery is not seen, probably atretic versus occluded. Basilar artery within normal limits. The flow within the posterior cerebral arteries is normal and symmetric. NECK MR ANGIOGRAM: Carotids: Great vessels demonstrate a conventional anatomy as they arise from the aortic arch. The origins of the common carotid arteries appear patent. The calibers and courses of both common carotid arteries are normal. 20-30% focal stenosis at the origin of the left internal carotid artery. No right ICA stenosis seen. Posterior circulation: High-grade focal stenosis at the origin of the right vertebral artery. The origin of the left vertebral artery is not well-visualized. 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 Normal appearing basilar artery. Miscellaneous: Subclavian arteries appear patent. Pre-contrast images through the neck show no soft tissue abnormalities. IMPRESSION: BRAIN MRI: No evidence of acute ischemia. Diffuse small white matter signal changes, probably represent chronic microvascular ischemic disease, versus statistically less likely demyelination or other infectious, inflammatory, neurodegenerative etiology, technically nonspecific. BRAIN MR ANGIOGRAM: Negative exam NECK MR ANGIOGRAM: Dominant right vertebral artery. 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 20-30% focal stenosis at the origin of the left ICA. No right ICA stenosis. High-grade focal stenosis at the origin of the right vertebral artery probably 80% or greater. Labs Result Diagrams: 10/31/18 15:55 10/31/18 15:55 Labs: Laboratory Results - last 24 hr 10/31/18 10/31/18 10/31/18 15:55 15:55 15:55 WBC 8.8 RBC 5.04 Hgb 15.4 Hct 45.4 MCV 90.0 MCH 30.6 MCHC 34.0 RDW 13.5 Plt Count 218 Neut % (Auto) 62.6 Lymph % (Auto) 28.4 [place] % (Auto) 7.4 Eos % (Auto) 0.9 L Baso % (Auto) 0.7 Neut # (Auto) 5500 Lymph # (Auto) 2500 [place] # (Auto) 600 Eos # (Auto) 100 Baso # (Auto) 100 PT 11.1 INR 1.0 APTT 37 H Sodium 138 Potassium 3.6 Chloride 102 Carbon Dioxide 26 BUN 18 Creatinine 0.90 Estimated GFR > 60.0 BUN/Creatinine Ratio 20.0 Glucose 99 Calcium 9.4 Ammonia Prolactin Urine Opiates Screen Ur Oxycodone Screen Urine Methadone Screen Ur Barbiturates Screen U Tricyclic Antidepress Ur Phencyclidine Scrn Ur Amphetamines Screen U Methamphetamines Scrn Ur MDMA Scrn (Ecstasy) U Benzodiazepines Scrn Urine Cocaine Screen U Marijuana (THC) Screen Ethyl Alcohol < 10 10/31/18 10/31/18 10/31/18 15:55 16:34 17:00 WBC RBC Hgb Hct MCV MCH MCHC RDW Plt Count Neut % (Auto) Lymph % (Auto) [place] % (Auto) Eos % (Auto) Baso % (Auto) Neut # (Auto) Lymph # (Auto) [place] # (Auto) Eos # (Auto) Baso # (Auto) PT INR APTT Sodium Potassium Chloride Carbon Dioxide BUN Creatinine Estimated GFR BUN/Creatinine Ratio Glucose Calcium Ammonia 12.0 Prolactin 22.6 H Urine Opiates Screen Negative Ur Oxycodone Screen Negative Urine Methadone Screen Negative Ur Barbiturates Screen Negative U Tricyclic Antidepress Negative Ur Phencyclidine Scrn Negative Ur Amphetamines Screen Negative U Methamphetamines Scrn Negative Ur MDMA Scrn (Ecstasy) Negative U Benzodiazepines Scrn Negative Urine Cocaine Screen Negative U Marijuana (THC) Screen Negative Ethyl Alcohol Discharge Plan Discharge Plan Patient Disposition: Home Discharge Med Rec/Prescriptions Prescriptions: Continued aspirin 81 MG tablet,delayed release (DR/EC) 81 mg PO DAILY Qty: 0 RF: 0 trazodone 100 MG tablet 50 - 200 mg PO BEDTIME Qty: 0 RF: 0 atorvastatin [Lipitor] 40 MG tablet 40 mg PO BEDTIME Qty: 0 RF: 0 clopidogrel [Plavix] 75 MG tablet 75 mg PO DAILY Qty: 0 RF: 0 clonazepam 1 mg tablet 0.5 mg PO BID PRN (Reason: Anxiety) Qty: 30 RF: 0 amlodipine 5 mg tablet 5 mg PO DAILY RF: 0 citalopram 20 MG tablet 20 mg PO DAILY RF: 0 metoprolol succinate 25 mg Tablet Extended Release 24 Hr 12.5 mg PO DAILY RF: 0 sildenafil (antihypertensive) 20 mg Tablet 100 mg PO DAILY PRN (Reason: Sexual Activity) RF: 0 lisinopril [Zestril] 40 mg tablet 40 mg PO DAILY RF: 0 Follow up/Referrals: Pino Pichardo MD [Primary Care Provider] - Visit Report/Discharge Packet Instructions: How to Prevent Falls, DI for Transient Global Amnesia Discharge Data Primary Care Provider: Pino Pichardo Attending Provider: Pino Pichardo Admit Date/Time: 10/31/18 17:19 Quality VTE Deep Vein Thrombosis/Pulmonary Embolism Present on Admission: No
--- NOTE | 2018-11-01 12:53 | P.DS_ITS ---
History of Present Illness Chief complaint: CONFUSION Discharge Providers Date of admission: 10/31/18 17:19 Primary care physician: Pino Pichardo MD Discharge provider: Pino Pichardo MD Discharge Date: 11/01/18 Exam Vital Signs (past 8 hours): - 11/01/18 07:55 11/01/18 08:46 11/01/18 11:00 Temperature 98.3 F 98.9 F Pulse Rate 55 L 59 L Respiratory Rate 16 18 Blood Pressure 141/72 H 144/68 H Pulse Oximetry 97 99 96 Oxygen Delivery Method Room Air Oxygen Flow Rate 0 Objective Imaging MRI - head: Radiologist's impression: [address] [address] Magnetic Resonance Report Signed Patient: Cesario Zaldivar MR#: [id number] : 1955 Acct:[id number] Age/Sex: 63 / M Date of Service: 10/31/18 Loc: 207-1 Accession Number: [id number] Procedure: MR stroke Ordering Provider: Alex Lovelace MD PROCEDURE: MR STROKE Pre- and post-contrast brain MRI, non-contrast brain MR angiogram, pre- and postcontrast neck MR angiogram INDICATIONS: Amnesia TECHNIQUE: Brain: Noncontrast axial T1 spin echo, axial T2 fast spin echo, sagittal and axial FLAIR, coronal T2 fast spin echo, axial gradient echo, axial diffusion and ADC through the brain. After the administration of contrast, axial 3D VIBE of the cranial vasculature and brain. Brain MRA: Non-contrast 3-D time of flight MR angiogram, with multiple ofgcilm-oachkjtva-tgmejurdmp (MIP) reformats performed. Neck MRA: Axial and sagittal TruFISP through the neck. Coronal dynamic MR angiogram during administration of contrast in the arterial and venous phases, with 3- dimenstional dbatkkc-ryewomluw-fahkqhgyhc (MIP) reformats constructed from subtraction images. COMPARISON: None. FINDINGS: Image quality: Excellent. BRAIN: CSF spaces: Ventricles are normal in size and shape. Basal cisterns are patent. No extra-axial fluid collections. Brain: No intracranial bleeds or mass effects. Scattered small white matter signal changes, probably represent chronic microvascular ischemic disease, versus statistically less likely demyelination or other infectious, inflammatory, neurodegenerative etiology, technically nonspecific. Gama-white matter interface is normal. Diffusion weighted images show no acute ischemic insults. Brainstem appears normal. Normal intravascular flow voids are present. No abnormal intracranial enhancement. Skull and face: Calvarial marrow signal is normal. Orbits appear normal. Sinuses: Sinuses and mastoids are clear except for a small right maxillary antrum polyp or mucous retention cyst. BRAIN MR ANGIOGRAM: Anterior circulation: Intracranial internal carotid arteries are normal in size and enhancement. The flow within the paired anterior cerebral arteries is normal and symmetric. The flow within the middle cerebral arteries is normal and symmetric. The anterior communicating artery is seen. No stenoses, occlusions, or aneurysms. Posterior circulation: There is dominant right vertebral artery. The distal left vertebral artery is not seen, probably atretic versus occluded. Basilar artery within normal limits. The flow within the posterior cerebral arteries is normal and symmetric. NECK MR ANGIOGRAM: Carotids: Great vessels demonstrate a conventional anatomy as they arise from the aortic arch. The origins of the common carotid arteries appear patent. The calibers and courses of both common carotid arteries are normal. 20-30% focal stenosis at the origin of the left internal carotid artery. No right ICA stenosis seen. Posterior circulation: High-grade focal stenosis at the origin of the right vertebral artery. The origin of the left vertebral artery is not well-visualized. 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 Normal appearing basilar artery. Miscellaneous: Subclavian arteries appear patent. Pre-contrast images through the neck show no soft tissue abnormalities. IMPRESSION: BRAIN MRI: No evidence of acute ischemia. Diffuse small white matter signal changes, probably represent chronic microvascular ischemic disease, versus statistically less likely demyelination or other infe ctious, inflammatory, neurodegenerative etiology, technically nonspecific. BRAIN MR ANGIOGRAM: Negative exam NECK MR ANGIOGRAM: Dominant right vertebral artery. 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 20-30% focal stenosis at the origin of the left ICA. No right ICA stenosis. High-grade focal stenosis at the origin of the right vertebral artery probably 80% or greater. Labs Result Diagrams: 10/31/18 15:55 10/31/18 15:55 Labs: Laboratory Results - last 24 hr 10/31/18 10/31/18 10/31/18 15:55 15:55 15:55 WBC 8.8 RBC 5.04 Hgb 15.4 Hct 45.4 MCV 90.0 MCH 30.6 MCHC 34.0 RDW 13.5 Plt Count 218 Neut % (Auto) 62.6 Lymph % (Auto) 28.4 Roane % (Auto) 7.4 Eos % (Auto) 0.9 L Baso % (Auto) 0.7 Neut # (Auto) 5500 Lymph # (Auto) 2500 Roane # (Auto) 600 Eos # (Auto) 100 Baso # (Auto) 100 PT 11.1 INR 1.0 APTT 37 H Sodium 138 Potassium 3.6 Chloride 102 Carbon Dioxide 26 BUN 18 Creatinine 0.90 Estimated GFR > 60.0 BUN/Creatinine Ratio 20.0 Glucose 99 Calcium 9.4 Ammonia Prolactin Urine Opiates Screen Ur Oxycodone Screen Urine Methadone Screen Ur Barbiturates Screen U Tricyclic Antidepress Ur Phencyclidine Scrn Ur Amphetamines Screen U Methamphetamines Scrn Ur MDMA Scrn (Ecstasy) U Benzodiazepines Scrn Urine Cocaine Screen U Marijuana (THC) Screen Ethyl Alcohol < 10 10/31/18 10/31/18 10/31/18 15:55 16:34 17:00 WBC RBC Hgb Hct MCV MCH MCHC RDW Plt Count Neut % (Auto) Lymph % (Auto) Roane % (Auto) Eos % (Auto) Baso % (Auto) Neut # (Auto) Lymph # (Auto) Roane # (Auto) Eos # (Auto) Baso # (Auto) PT INR APTT Sodium Potassium Chloride Carbon Dioxide BUN Creatinine Estimated GFR BUN/Creatinine Ratio Glucose Calcium Ammonia 12.0 Prolactin 22.6 H Urine Opiates Screen Negative Ur Oxycodone Screen Negative Urine Methadone Screen Negative Ur Barbiturates Screen Negative U Tricyclic Antidepress Negative Ur Phencyclidine Scrn Negative Ur Amphetamines Screen Negative U Methamphetamines Scrn Negative Ur MDMA Scrn (Ecstasy) Negative U Benzodiazepines Scrn Negative Urine Cocaine Screen Negative U Marijuana (THC) Screen Negative Ethyl Alcohol Discharge Plan Discharge Plan Patient Disposition: Home Discharge Med Rec/Prescriptions Prescriptions: Continued aspirin 81 MG tablet,delayed release (DR/EC) 81 mg PO DAILY Qty: 0 RF: 0 trazodone 100 MG tablet 50 - 200 mg PO BEDTIME Qty: 0 RF: 0 atorvastatin [Lipitor] 40 MG tablet 40 mg PO BEDTIME Qty: 0 RF: 0 clopidogrel [Plavix] 75 MG tablet 75 mg PO DAILY Qty: 0 RF: 0 clonazepam 1 mg tablet 0.5 mg PO BID PRN (Reason: Anxiety) Qty: 30 RF: 0 amlodipine 5 mg tablet 5 mg PO DAILY RF: 0 citalopram 20 MG tablet 20 mg PO DAILY RF: 0 metoprolol succinate 25 mg Tablet Extended Release 24 Hr 12.5 mg PO DAILY RF: 0 sildenafil (antihypertensive) 20 mg Tablet 100 mg PO DAILY PRN (Reason: Sexual Activity) RF: 0 lisinopril [Zestril] 40 mg tablet 40 mg PO DAILY RF: 0 Follow up/Referrals: Pino Pichardo MD [Primary Care Provider] - Visit Report/Discharge Packet Instructions: How to Prevent Falls, DI for Transient Global Amnesia Discharge Data Primary Care Provider: Pino Pichardo Attending Provider: Pino Pichardo Admit Date/Time: 10/31/18 17:19 Quality VTE Deep Vein Thrombosis/Pulmonary Embolism Present on Admission: No
--- NOTE | 2018-11-01 13:04 | CM.IDA ---
Discharge Planning/Care Management CM Discharge Assessment Start: 11/01/18 13:01 Freq: Status: Active Protocol: Document 11/01/18 13:01 THANIA (Rec: 11/01/18 13:04 THANIA [id number]) Discharge Planning Assessment Assigned Gynecologist GERMAINE Burrell DPOA/Assigned Designee Name Jennifer Zaldivar, spouse Contact Information [phone] Advance Directives? No Advance Directives on File No History Provided By Patient Prior Living Arrangements House Household Members spouse Type of transporation used prior to Drives own vehicle admit Independent with ADL's Yes Is patient alert and oriented? Yes Barriers to Discharge No Comment DC order for return home in place. MRI negative for acute findings. Close outpt f/u is ordered by Dr Pichardo. Attempted to meet w/pt and spouse, Dr Pichardo in room discussing DC instructions etc.No barriers indicated by RN for safe return home w/supportive staff . P: DC home today w/ and close outpt f/u. GERMAINE Rubio Discharge Plan Home Transportation Arrangement Family Referrals Initiated None needed Review Status In Process
--- NOTE | 2018-11-01 14:06 | PC.NURSE ---
Day Shift- Discharge summary packet reviewed with Patient and his at bedside. States has all belongings. PIV removed, slight bleeding post removal, gauze changed and bleeding stopped. Called Dr. Pichardo's office to make follow up appointment, office will have to call patient back to make appointment due to scheduling. Pt aware. Pt had no voiced concerns and is ready for discharge.
== END 2018-11-01 14:09 | disposition home or self-care (01) ==
LOC: ED 17:05 → AC 17:22
PROVIDERS: Admitting Provider Internal Medicine; Emergency Provider Emergency Medicine; PCP Family Medicine; Visit Provider Family Medicine
DX: R41.0 Disorientation, unspecified (principal); Z79.01 Long term (current) use of anticoagulants; I25.10 Atherosclerotic heart disease of native coronary artery without angina pectoris; I10 Essential (primary) hypertension; E78.5 Hyperlipidemia, unspecified; E66.9 Obesity, unspecified; F33.41 Major depressive disorder, recurrent, in partial remission; F41.9 Anxiety disorder, unspecified
CPT/HCPCS: 36415; 36591; 70450; 70553; 80048; 80305; 80320; 82140; 82962; 84146; 85025; 85610; 85730; 93005; 94660; 94762; 99283; 99285; 99291; G0378

== ENCOUNTER 2019-01-22 13:38 | Emergency (ER) | payer OTHER, SELFPAY ==
[2018-10-31 18:32] VITALS: BMI 36.9
[2019-01-22 13:49] VITALS: BP 154/80; PULSE 67; RESP 18; TEMP 36.7; O2SAT 99; BMI 36.9
--- NOTE | 2019-01-22 14:22 | DI.RAD.S_ITS ---
PROCEDURE: XR LUMBAR SPINE 2-3V INDICATIONS: fall onto metal TECHNIQUE: 3 views of the lumbar spine were acquired. COMPARISON: [facility] [place], [place], XR LUMBAR SPINE 2 OR 3 VIEWS, 07/24/2018, 14:37. FINDINGS: Bones: There are 5 lumbar-type vertebral bodies. The lowest intervertebral disk space is designated as L5-S1. The vertebral body heights are well-maintained without evidence to suggest an acute compression fracture. The bone mineralization is within normal limits. Moderate multilevel degenerative changes of the lumbar spine are present with anterior disc osteophyte complexes and the posterior facet arthropathy. The degree of degenerative changes are more prominent involving the lower lumbar levels. Soft tissues: The soft tissues of the imaged abdomen and pelvis are within normal limits. IMPRESSION: 1. No acute fracture of the lumbar spine is evident. 2. Moderate multilevel degenerative changes of the lumbar spine are more prominent involving the lower lumbar facets. Dictated by: Cristhian Manrique M.D. on 01/22/2019 at 14:07 Approved by: Cristhian Manrique M.D. on 01/22/2019 at 14:10
--- NOTE | 2019-01-22 14:22 | DI.RAD.S_ITS ---
PROCEDURE: XR THORACIC SPINE 3V INDICATIONS: fall onto metal TECHNIQUE: 3 views of the thoracic spine were acquired. COMPARISON: None. FINDINGS: Bones: On the lateral views, the cervicothoracic junction is adequately visualized and the alignment through this region is within normal limits. The vertebral body heights are within normal limits throughout the thoracic spine without evidence to suggest acute compression fracture. The bone mineralization is within normal limits. Moderate multilevel degenerative changes of the thoracic spine are present. Anterior disc osteophyte complexes are present connecting multiple levels, compatible with diffuse idiopathic skeletal hyperostosis. Soft tissues: The imaged overlying soft tissues of the chest are within normal limits. IMPRESSION: 1. No acute compression fractures of the thoracic spine. 2. Moderate degenerative changes of the thoracic spine. Dictated by: Cristhian Manrique M.D. on 01/22/2019 at 14:06 Approved by: Cristhian Manrique M.D. on 01/22/2019 at 14:07
[2019-01-22 14:37] LABS: Add Manual Diff / Slide Review NO; Basophils Absolute Auto 100 /uL (0-100); Basophils Percent Auto 0.6 % (0-2); Eosinophils Absolute Auto 100 /uL (0-450); Eosinophils Percent Auto 0.7 % (2-4); Hematocrit 45.6 % (41-53); Hemoglobin 15.3 g/dL (13.5-17.5); Lymphocytes Absolute Auto 2500 /uL (1100-4500); Lymphocytes Percent Auto 21.8 % (25-40); Mean Corpuscular HGB Conc 33.5 % (30-36); Mean Corpuscular Hemoglobin 30.3 PG (26-34); Mean Corpuscular Volume 90.6 fL (80-100); Monocytes Absolute Auto 700 /uL (0-900); Monocytes Percent Auto 6.5 % (3-14); Neutrophils Absolute Auto 8000 /uL (1500-7000); Neutrophils Percent Auto 70.4 % (50-75); Platelet Count 225 X10^3/uL (150-400); Red Blood Cell Count 5.04 X10^6/uL (4.5-5.9); Red Cell Distribution Width 13.9 % (11.6-14.8); White Blood Cell Count 11.3 X10^3/uL (4.5-11.0)
[2019-01-22] MEDS: MORPHINE 4 MG/ML INJ IV (14:48)
[2019-01-22] MEDS: TET,DIPH,PERTUSS(ACELL),VAC/PF 0.5 ML SYRINGE IM (14:49)
[2019-01-22 14:55] LABS: Alanine Aminotransferase 39 IU/L (21-72); Albumin 4.5 g/dL (3.5-5.0); Albumin Globulin Ratio 1.5 (1.0-2.8); Alkaline Phosphatase 67 U/L (38-126); Aspartate Aminotransferase 45 IU/L (17-59); BUN Creatinine Ratio 21.3 (6-22); Bilirubin Total 0.7 mg/dL (0.2-1.3); Blood Urea Nitrogen 17 mg/dL (9-20); Calcium 9.3 mg/dL (8.4-10.2); Carbon Dioxide 26 mmol/L (22-32); Chloride 103 mmol/L (98-107); Estimated Glomerular Filt Rate > 60.0 mL/min (>60); Globulin 3.1 g/dL (1.7-4.1); Glucose 91 mg/dL (80-110); Potassium 4.2 mmol/L (3.4-5.1); Sodium 139 mmol/L (137-145); Total Protein 7.6 g/dL (6.3-8.2)
--- NOTE | 2019-01-22 14:55 | ED.BACK ---
HPI - Back Pain/Injury <ROBERT Mcdonald - Last Filed: 01/22/19 21:30> General Chief Complaint: Back Pain/Injury Stated Complaint: fell hit lower back hard Time Seen by Provider: 01/22/19 14:08 Source: patient Mode of arrival: ambulatory Limitations: no limitations History of Present Illness HPI Narrative: Patient is a 64-year-old male former smoker with history of high cholesterol with chief complaint of lower back pain. he states he hit his left lower back on a metal or rain at approximately 9:00 a.m. this morning and complains of bruising and laceration. He denies any numbness or tingling. He denies any incontinence of bowel or bladder. He has not been anything for pain. He has not applied ice. He states there is an overlying laceration over bruising. He does not know when his last tetanus was Related Data Home Medications Medication Instructions Recorded Confirmed aspirin 81 mg PO DAILY #0 01/14/18 01/22/19 atorvastatin [Lipitor] 40 mg PO BEDTIME #0 01/14/18 01/22/19 clopidogrel [Plavix] 75 mg PO DAILY #0 01/14/18 11/07/18 trazodone 50 - 200 mg PO BEDTIME #0 01/14/18 01/22/19 amlodipine 5 mg PO DAILY 10/31/18 01/22/19 lisinopril [Zestril] 40 mg PO DAILY 10/31/18 01/22/19 metoprolol succinate 12.5 mg PO DAILY 10/31/18 01/22/19 sildenafil (antihypertensive) 100 mg PO DAILY PRN 10/31/18 11/07/18 clonazepam 0.5 mg PO BID PRN 01/22/19 01/22/19 Previous Rx's Medication Instructions Recorded citalopram 20 mg tablet 20 mg PO DAILY #30 tab 01/10/19 hydrocodone-acetaminophen [Fulton] 1 tab PO Q4-6H PRN #10 tab 01/22/19 Allergies Allergy/AdvReac Type Severity Reaction Status Date / Time No Known Drug Allergies Allergy Verified 01/22/19 13:56 Review of Systems <ROBERT Mcdonald - Last Filed: 01/22/19 21:30> Review of Systems GENERAL: Denies chills, fatigue, malaise, fever, sweats. HEENT: Denies sinus pain, ear pain, sore throat, difficulty swallowing, dizziness. RESPIRATORY: Denies dyspnea, cough, wheezing, hemoptysis, sputum. CARDIOVASCULAR: Denies chest pain, palpitations, orthopnea, edema, GASTROINTESTINAL: Denies nausea, vomiting, abdominal pain, diarrhea, constipation, melena. : Denies dysuria, frequency, incontinence, hematuria, urinary retention. MUSCULOSKELETAL: See SKIN: See HPI NEUROLOGIC: Denies weakness, headache, numbness, change in speech, confusion, seizures, incoordination. PSYCHIATRIC: No concerning psychosocial issues. 12 point review of systems is negative except for those stated above PFSH <ROBERT Mcdonald - Last Filed: 01/22/19 21:30> Medical History Coronary artery disease (Chronic ~11/2017) Hypertension (Chronic 03/02/14) Hyperlipidemia (Chronic) Obstructive sleep apnea (Chronic 08/16/11) Obesity (Chronic) Neuropathy (Chronic 12/11/14) Psoriasis (Chronic 08/16/11) Chronic sinusitis (Chronic) Major depressive disorder (Chronic 08/16/11) Generalized anxiety disorder (Chronic 09/26/17) Surgical History Stented coronary artery (Inactive) Status post arthroscopy Family History Sister Hypertension Social History marital status: household members: spouse Smoking Status: Former smoker alcohol intake: current substance use type: does not use Family History Sister Hypertension Social History marital status: household members: spouse Smoking Status: Former smoker alcohol intake: current substance use type: does not use Exam <ROBERT Mcdonald - Last Filed: 01/22/19 21:30> Narrative Exam Narrative: GENERAL: This is a well-nourished, well-developed patient, appears uncomfortable HEAD: Atraumatic. Normocephalic. No temporal or scalp tenderness. EYES: Pupils equal round and reactive. Extraocular motions intact. No scleral icterus. No injection or drainage. ENT: Nose without bleeding, purulent drainage or septal hematoma. Throat without erythema, tonsillar hypertrophy or exudate. Uvula midline. Airway patent. NECK: Trachea midline. No JVD or lymphadenopathy. Supple, nontender, no meningeal signs. CARDIOVASCULAR: Regular rate and rhythm without murmurs, gallops, or rubs. RESPIRATORY: Clear to auscultation. Breath sounds equal bilaterally. No wheezes, rales, or rhonchi. GASTROINTESTINAL: Abdomen soft, non-tender, nondistended. No hepato-splenomegaly, or palpable masses. No guarding. EXTREMITIES: No clubbing, cyanosis, or edema. No joint tenderness, effusion, or edema noted. BACK: Nontender without deformity or crepitance. No flank tenderness. pain to palpation T spine medial to hematoma with laceration. NEURO: AOx3. Strength is equal lower extremities bilaterally. Stable gait. Sensation intact lower legs. SKIN: Ecchymosis noted approximately 6 cm left lumbar area. Overlying 3 cm abrasion. Initial Vital Signs Initial Vital Signs: Vital Signs Temperature 98.0 F 01/22/19 13:49 Pulse Rate 67 01/22/19 13:49 Respiratory Rate 18 01/22/19 13:49 Blood Pressure 154/80 H 01/22/19 13:49 Pulse Oximetry 99 01/22/19 13:49 <Helen Archer MD - Last Filed: 01/23/19 12:05> Initial Vital Signs Initial Vital Signs: Vital Signs Temperature 98.0 F 01/22/19 13:49 Pulse Rate 67 01/22/19 13:49 Respiratory Rate 18 01/22/19 13:49 Blood Pressure 154/80 H 01/22/19 13:49 Pulse Oximetry 99 01/22/19 13:49 Course <ROBERT Mcdonald - Last Filed: 01/22/19 21:30> Orders Ordered: Discontinued Medications Hydrocodone Bitart/Acetaminophen (F[place]on 5/325) 2 tab PO NOW ONE Stop: 01/22/19 15:22 Last Admin: 01/22/19 15:27 Dose: 2 tab Diphtheria/Tetanus/Acell Pertussis (Adacel) 0.5 ml IM .ONCE ONE Stop: 01/22/19 14:17 Last Admin: 01/22/19 14:49 Dose: 0.5 ml Morphine Sulfate (Morphine) 4 mg IV NOW ONE Stop: 01/22/19 14:43 Last Admin: 01/22/19 14:48 Dose: 4 mg Vital Signs - 8 hr 01/22/19 13:49 01/22/19 15:49 Temperature 98.0 F Pulse Rate 67 59 L Respiratory Rate 18 16 Blood Pressure 154/80 H Blood Pressure [Left Arm] 142/80 H Pulse Oximetry 99 99 <Helen Archer MD - Last Filed: 01/23/19 12:05> Orders Ordered: Discontinued Medications Hydrocodone Bitart/Acetaminophen (F[place] 5/325) 2 tab PO NOW ONE Stop: 01/22/19 15:22 Last Admin: 01/22/19 15:27 Dose: 2 tab Diphtheria/Tetanus/Acell Pertussis (Adacel) 0.5 ml IM .ONCE ONE Stop: 01/22/19 14:17 Last Admin: 01/22/19 14:49 Dose: 0.5 ml Morphine Sulfate (Morphine) 4 mg IV NOW ONE Stop: 01/22/19 14:43 Last Admin: 01/22/19 14:48 Dose: 4 mg Vital Signs - 8 hr 01/22/19 13:49 01/22/19 15:49 Temperature 98.0 F Pulse Rate 67 59 L Respiratory Rate 18 16 Blood Pressure 154/80 H Blood Pressure [Left Arm] 142/80 H Pulse Oximetry 99 99 MDM - Back Pain/Injury <ROBERT Mcdonald - Last Filed: 01/22/19 21:30> Lab Data Result diagrams: 01/22/19 14:33 01/22/19 14:33 Lab Results 01/22/19 01/22/19 Range/Units 14:33 14:33 WBC 11.3 H (4.5-11.0) X10^3/uL RBC 5.04 (4.5-5.9) X10^6/uL Hgb 15.3 (13.5-17.5) g/dL Hct 45.6 (41-53) % MCV 90.6 (80-100) fL MCH 30.3 (26-34) PG MCHC 33.5 (30-36) % RDW 13.9 (11.6-14.8) % Plt Count 225 (150-400) X10^3/uL Neut % (Auto) 70.4 (50-75) % Lymph % (Auto) 21.8 L (25-40) % [place] % (Auto) 6.5 (3-14) % Eos % (Auto) 0.7 L (2-4) % Baso % (Auto) 0.6 (0-2) % Neut # (Auto) 8000 H (9708-6747) /uL Lymph # (Auto) 2500 (9914-0297) /uL [place] # (Auto) 700 (0-900) /uL Eos # (Auto) 100 (0-450) /uL Baso # (Auto) 100 (0-100) /uL Sodium 139 (137-145) mmol/L Potassium 4.2 (3.4-5.1) mmol/L Chloride 103 (98-107) mmol/L Carbon Dioxide 26 (22-32) mmol/L BUN 17 (9-20) mg/dL Creatinine 0.80 (0.66-1.25) mg/dL Estimated GFR > 60.0 (>60) mL/min BUN/Creatinine Ratio 21.3 (6-22) Glucose 91 (80-110) mg/dL Calcium 9.3 (8.4-10.2) mg/dL Total Bilirubin 0.7 (0.2-1.3) mg/dL AST 45 (17-59) IU/L ALT 39 (21-72) IU/L Alkaline Phosphatase 67 (38-126) U/L Total Protein 7.6 (6.3-8.2) g/dL Albumin 4.5 (3.5-5.0) g/dL Globulin 3.1 (1.7-4.1) g/dL Albumin/Globulin Ratio 1.5 (1.0-2.8) Urine Dip Bedside Urine Glucose Negative Bedside Urine Bilirubin - Negative Bedside Urine Ketone - Negative Urine Specific [place] 1.025 Bedside Urine Occult Blood + Bedside Urine pH 6.0 Bedside Urine Protein - Negative Bedside Urine Urobilinogen - Negative Bedside Urine Nitrite - Negative Bedside Urine Leukocytes - Negative Esterase Imaging Data T-spine x-ray: Radiologist's impression: [address] [address] XRay Report Signed Patient: Cesario Zaldivar CMR#: [id number] : 7Acct:[id number] Age/Sex: 64 / MDate of Service: 01/22/19 Loc: ED Accession Number: [id number] Procedure: XR thoracic spine 3V Ordering Provider: Kathrine Chakraborty PROCEDURE: XR THORACIC SPINE 3V INDICATIONS: fall onto metal TECHNIQUE: 3 views of the thoracic spine were acquired. COMPARISON: None. FINDINGS: Bones: On the lateral views, the cervicothoracic junction is adequately visualized and the alignment through this region is within normal limits. The vertebral body heights are within normal limits throughout the thoracic spine without evidence to suggest acute compression fracture. The bone mineralization is within normal limits. Moderate multilevel degenerative changes of the thoracic spine are present. Anterior disc osteophyte complexes are present connecting multiple levels, compatible with diffuse idiopathic skeletal hyperostosis. Soft tissues: The imaged overlying soft tissues of the chest are within normal limits. IMPRESSION: 1. No acute compression fractures of the thoracic spine. 2. Moderate degenerative changes of the thoracic spine. Dictated by: Cristhian Manrique M.D. on 01/22/2019 at 14:06 Approved by: Cristhian Manrique M.D. on 01/22/2019 at 14:07 Lumbar spine x-ray: Radiologist's impression: [address] [address] XRay Report Signed Patient: Cesario Zaldivar CMR#: [id number] : 7Acct:[id number] Age/Sex: 64 / MDate of Service: 01/22/19 Loc: ED Accession Number: [id number] Procedure: XR lumbar spine 2-3V Ordering Provider: Kathrine Chakraborty PROCEDURE: XR LUMBAR SPINE 2-3V INDICATIONS: fall onto metal TECHNIQUE: 3 views of the lumbar spine were acquired. COMPARISON: [facility] IVELISSE Alcazar, XR LUMBAR SPINE 2 OR 3 VIEWS, 07/24/2018, 14:37. FINDINGS: Bones: There are 5 lumbar-type vertebral bodies. The lowest intervertebral disk space is designated as L5-S1. The vertebral body heights are well-maintained without evidence to suggest an acute compression fracture. The bone mineralization is within normal limits. Moderate multilevel degenerative changes of the lumbar spine are present with anterior disc osteophyte complexes and the posterior facet arthropathy. The degree of degenerative changes are more prominent involving the lower lumbar levels. Soft tissues: The soft tissues of the imaged abdomen and pelvis are within normal limits. IMPRESSION: 1. No acute fracture of the lumbar spine is evident. 2. Moderate multilevel degenerative changes of the lumbar spine are more prominent involving the lower lumbar facets. Dictated by: Cristhian Manrique M.D. on 01/22/2019 at 14:07 Approved by: Cristhian Manrique M.D. on 01/22/2019 at 14:10 MDM Narrative Medical decision making narrative: The patient is a 64-year-old male who presents with a chief complaint of back pain after falling onto a metal piece at work. He does not have any red flag symptoms of spinal cord injury he has good strength and no incontinence. Given that this happened at 9:00 a.m., I would expect a drop in hemoglobin and hematocrit if there were a traumatic injury leading to bleeding, which did not occur. His H&H is good at this point time. He was treated for pain. He has negative x-rays. I discussed at length [id number] medications as needed and able, but given the significance as of his injury I did give him some F[place]. His laceration is abrasion that does not need to be closed. I discussed at length coming back to the emergency department for any dizziness, acute concerns. Encouraged follow-up with primary care provider. Patient no questions or concerns upon discharge he was hemodynamically stable throughout his stay in the ER. L and I paperwork filled out <Helen Archer MD - Last Filed: 01/23/19 12:05> Lab Data Lab Results 01/22/19 01/22/19 Range/Units 14:33 14:33 WBC 11.3 H (4.5-11.0) X10^3/uL RBC 5.04 (4.5-5.9) X10^6/uL Hgb 15.3 (13.5-17.5) g/dL Hct 45.6 (41-53) % MCV 90.6 (80-100) fL MCH 30.3 (26-34) PG MCHC 33.5 (30-36) % RDW 13.9 (11.6-14.8) % Plt Count 225 (150-400) X10^3/uL Neut % (Auto) 70.4 (50-75) % Lymph % (Auto) 21.8 L (25-40) % [place] % (Auto) 6.5 (3-14) % Eos % (Auto) 0.7 L (2-4) % Baso % (Auto) 0.6 (0-2) % Neut # (Auto) 8000 H (7827-7346) /uL Lymph # (Auto) 2500 (1969-4587) /uL [place] # (Auto) 700 (0-900) /uL Eos # (Auto) 100 (0-450) /uL Baso # (Auto) 100 (0-100) /uL Sodium 139 (137-145) mmol/L Potassium 4.2 (3.4-5.1) mmol/L Chloride 103 (98-107) mmol/L Carbon Dioxide 26 (22-32) mmol/L BUN 17 (9-20) mg/dL Creatinine 0.80 (0.66-1.25) mg/dL Estimated GFR > 60.0 (>60) mL/min BUN/Creatinine Ratio 21.3 (6-22) Glucose 91 (80-110) mg/dL Calcium 9.3 (8.4-10.2) mg/dL Total Bilirubin 0.7 (0.2-1.3) mg/dL AST 45 (17-59) IU/L ALT 39 (21-72) IU/L Alkaline Phosphatase 67 (38-126) U/L Total Protein 7.6 (6.3-8.2) g/dL Albumin 4.5 (3.5-5.0) g/dL Globulin 3.1 (1.7-4.1) g/dL Albumin/Globulin Ratio 1.5 (1.0-2.8) Urine Dip Bedside Urine Glucose Negative Bedside Urine Bilirubin - Negative Bedside Urine Ketone - Negative Urine Specific [place] 1.025 Bedside Urine Occult Blood + Bedside Urine pH 6.0 Bedside Urine Protein - Negative Bedside Urine Urobilinogen - Negative Bedside Urine Nitrite - Negative Bedside Urine Leukocytes - Negative Esterase Discharge Plan Departure Patient Disposition: Home Clinical Impression: Fall from ground level, Abrasion, Hematoma Discharge Date/Time: 01/22/19 15:55 Interventions: ED Discharge Assessment Last Done: 01/22/19 15:55 Instructions: DI for Low Back Pain, DI for Hematoma (Bruise), DI for Abrasion Activity Restrictions/Additional Instructions: Your kidney function is good here today. Your blood counts are good. I believe that you have a significant bruise call hematoma with an overlying abrasion. Please keep the abrasion clean and dry. Watch for signs and symptoms of infection. I have given her pain medication, which can make you sedated constipated. Please monitor for neurologic concerns such as incontinence as we discussed. Be evaluated if these occur immediately. Please follow up with primary care provider. Please rest and apply ice to your back. Your x-rays came back normal. come back to emergency department for any acute concerns. Prescriptions: New hydrocodone-acetaminophen [Fulton] 5-325 mg tablet 1 tab PO Q4-6H PRN (Reason: pain) Qty: 10 RF: 0 No Action aspirin 81 MG tablet,delayed release (DR/EC) 81 mg PO DAILY Qty: 0 RF: 0 trazodone 100 MG tablet 50 - 200 mg PO BEDTIME Qty: 0 RF: 0 atorvastatin [Lipitor] 40 MG tablet 40 mg PO BEDTIME Qty: 0 RF: 0 clopidogrel [Plavix] 75 MG tablet 75 mg PO DAILY Qty: 0 RF: 0 citalopram 20 mg tablet 20 mg PO DAILY Qty: 30 RF: 2 amlodipine 5 mg tablet 5 mg PO DAILY RF: 0 metoprolol succinate 25 mg Tablet Extended Release 24 Hr 12.5 mg PO DAILY RF: 0 sildenafil (antihypertensive) 20 mg Tablet 100 mg PO DAILY PRN (Reason: Sexual Activity) RF: 0 lisinopril [Zestril] 40 mg tablet 40 mg PO DAILY RF: 0 clonazepam 0.5 mg Tablet 0.5 mg PO BID PRN (Reason: Anxiety) RF: 0 Referrals: Pino Pichardo MD [Primary Care Provider] -
[2019-01-22 14:56] LABS: HEMOLYSIS 63 (0-50)
[2019-01-22] MEDS: HYDROCODONE/ACET 5/325 TABLET 2 TAB PO (15:27)
[2019-01-22 15:49] VITALS: BP 142/80; PULSE 59; RESP 16; O2SAT 99
== END 2019-01-22 15:55 | disposition home or self-care (01) ==
PROVIDERS: Emergency Provider Nurse Practitioner Family; PCP Family Medicine
DX: S20.412A Abrasion of left back wall of thorax, initial encounter (principal); M54.5 Low back pain; Y99.0 Civilian activity done for income or pay; Z23 Encounter for immunization
CPT/HCPCS: 36591; 72072; 72100; 80053; 81003; 85025; 90471; 96374; 99282; 99284; 90715; J2270

== ENCOUNTER → 2020-03-19 08:56 | Outpatient (CLI) | payer OTHER, SELFPAY ==
[2019-02-11 13:40] VITALS: BMI 36.9
[2020-03-19 09:53] LABS: Alanine Aminotransferase 22 IU/L (<50); Albumin 4.2 g/dL (3.5-5.0); Albumin Globulin Ratio 1.4 (1.0-2.8); Alkaline Phosphatase 74 U/L (38-126); Aspartate Aminotransferase 35 IU/L (17-59); BUN Creatinine Ratio 18.2 (6-22); Blood Urea Nitrogen 16 mg/dL (9-20); Calcium 9.1 mg/dL (8.4-10.2); Carbon Dioxide 29 mmol/L (22-32); Chloride 103 mmol/L (98-107); Cholesterol 135 mg/dL (140-199); Estimated Glomerular Filt Rate > 60.0 mL/min (>60); Globulin 2.9 g/dL (1.7-4.1); Glucose 98 mg/dL (80-110); HDL Cholesterol 44 mg/dL (40-60); HEMOLYSIS 16 (0-50); LDL Cholesterol Calculated 69 mg/dL (<100); Potassium 4.2 mmol/L (3.4-5.1); Sodium 137 mmol/L (137-145); Total Protein 7.1 g/dL (6.3-8.2); Triglycerides 110 mg/dL (35-150)
== END ==
PROVIDERS: PCP Family Medicine; Referring Provider Internal Medicine Cardiovascular Disease; Visit Provider Internal Medicine Cardiovascular Disease
DX: E78.5 Hyperlipidemia, unspecified (principal)
CPT/HCPCS: 36415; 80053; 80061

== ENCOUNTER → 2020-12-29 17:45 | Outpatient (CLI) | payer OTHER, SELFPAY ==
[2019-02-11 13:40] VITALS: BMI 36.9
--- NOTE | 2020-12-29 | DI.MRI.S_ITS ---
PROCEDURE: MR LUMBAR SPINE WO CON INDICATIONS: LOW BACK PAIN TECHNIQUE: Noncontrast sagittal T1 spin echo and T2 fast echo, sagittal STIR, axial T1 and T2 fast spin echo through the lumbar spine. In cases with scoliosis, additional coronal T2 fast spin echo may be performed. COMPARISON: [facility], CR, XR LUMBAR SPINE 2-3V, 01/22/2019, 14:43. FINDINGS: Image quality: Excellent. Alignment and Curvature: There is normal bony alignment. Bone Marrow: Marrow is of normal overall signal. No acute vertebral body compression fractures. Spinal Cord: Conus medullaris terminates at the L1 level. Visualized cord demonstrates normal signal and size. Paraspinous Soft Tissues: No paravertebral masses. T12-L1: Loss of disc signal and height. Mild, diffuse disc bulge. Mild narrowing of the central canal. No neural foraminal narrowing. No neural compression. L1-L2: Loss of disc signal. Mild to moderate diffuse disc bulge. Mild bilateral facet hypertrophy. Mild narrowing of the central canal. Mild bilateral neural foraminal narrowing. No neural compression. Fissure noted in the left posterior annulus. L2-L3: Loss of disc signal. Mild, diffuse disc bulge. Mild bilateral facet hypertrophy. Mild narrowing of the central canal. Mild bilateral neural foraminal narrowing. No neural compression. L3-L4: Loss of disc signal. Mild, diffuse disc bulge. Mild bilateral facet hypertrophy. Mild narrowing of the central canal. Mild bilateral neural foraminal narrowing. No neural compression. Fissure noted in the posterior annulus. L4-L5: Loss of disc signal. Mild, diffuse disc bulge. Moderate right and mild left facet hypertrophy. Mild narrowing of the central canal. Mild bilateral neural foraminal narrowing. No neural compression. L5-S1: Slight loss of disc signal. Moderate bilateral facet hypertrophy. No central stenosis. Mild bilateral neural foraminal narrowing. No neural compression. IMPRESSION: 1. Multilevel degenerative disc disease. 2. Multilevel facet arthropathy. 3. No severe central canal narrowing. 4. No severe neural foraminal narrowing. 5. No neural compression. . 6. L1-L2 and L3-L4 disc annulus fissures. Dictated by: Anastasia Shah MD, PhD on 12/30/2020 at 8:42 Approved by: Anastasia Shah MD, PhD on 12/30/2020 at 10:57
== END ==
PROVIDERS: PCP Family Medicine; Referring Provider Internal Medicine; Visit Provider Internal Medicine
DX: M54.5 Low back pain (principal); M51.36 Other intervertebral disc degeneration, lumbar region; M47.816 Spondylosis without myelopathy or radiculopathy, lumbar region
CPT/HCPCS: 72148

== ENCOUNTER → 2021-04-23 08:22 | Outpatient (CLI) | payer OTHER, SELFPAY ==
[2019-02-11 13:40] VITALS: BMI 36.9
[2021-04-23 09:41] LABS: Add Manual Diff / Slide Review NO; Basophils Absolute Auto 0 /uL (0-100); Basophils Percent Auto 0.7 % (0-2); Eosinophils Absolute Auto 100 /uL (0-450); Eosinophils Percent Auto 1.7 % (2-4); Hematocrit 44.1 % (41-53); Hemoglobin 14.9 g/dL (13.5-17.5); Lymphocytes Absolute Auto 2400 /uL (1100-4500); Lymphocytes Percent Auto 33.2 % (25-40); Mean Corpuscular HGB Conc 33.7 % (30-36); Mean Corpuscular Hemoglobin 30.4 PG (26-34); Mean Corpuscular Volume 90.2 fL (80-100); Monocytes Absolute Auto 600 /uL (0-900); Monocytes Percent Auto 7.6 % (3-14); Neutrophils Absolute Auto 4200 /uL (1500-7000); Neutrophils Percent Auto 56.8 % (50-75); Platelet Count 211 X10^3/uL (150-400); Red Blood Cell Count 4.88 X10^6/uL (4.5-5.9); Red Cell Distribution Width 13.9 % (11.6-14.8); White Blood Cell Count 7.3 X10^3/uL (4.5-11.0)
[2021-04-23 10:16] LABS: Alanine Aminotransferase 22 IU/L (<50); Albumin Globulin Ratio 1.5 (1.0-2.8); Alkaline Phosphatase 86 U/L (38-126); Aspartate Aminotransferase 29 IU/L (17-59); Bilirubin Total 0.8 mg/dL (0.2-1.3); Blood Urea Nitrogen 17 mg/dL (9-20); Calcium 9.4 mg/dL (8.4-10.2); Carbon Dioxide 24 mmol/L (22-32); Chloride 108 mmol/L (98-107); Cholesterol 141 mg/dL (140-199); Estimated Glomerular Filt Rate > 60.0 mL/min (>60); Globulin 2.6 g/dL (1.7-4.1); Glucose 97 mg/dL (80-110); HDL Cholesterol 52 mg/dL (40-60); HEMOLYSIS < 15 (0-50); LDL Cholesterol Calculated 68 mg/dL (<100); Potassium 4.2 mmol/L (3.4-5.1); Sodium 139 mmol/L (137-145); Total Protein 6.6 g/dL (6.3-8.2); Triglycerides 107 mg/dL (35-150)
[2021-04-23 10:39] LABS: TSH w/ Reflex to FT4 3.67 uIU/mL (0.47-4.68)
== END ==
PROVIDERS: PCP Family Medicine; Referring Provider Family Medicine; Visit Provider Family Medicine
DX: E78.5 Hyperlipidemia, unspecified (principal); I10 Essential (primary) hypertension; I25.10 Atherosclerotic heart disease of native coronary artery without angina pectoris
CPT/HCPCS: 36415; 80053; 80061; 84443; 85025

== ENCOUNTER 2021-10-21 15:13 | Emergency (ER) | payer OTHER, SELFPAY ==
[2021-06-27 13:44] VITALS: BMI 36.9
[2021-10-21 15:26] VITALS: BP 99/56; PULSE 82; RESP 18; TEMP 36.6; O2SAT 97; BMI 38.4
--- NOTE | 2021-10-21 15:57 | ED.DIZZY ---
HPI - Dizziness General Chief Complaint: Dizziness Stated Complaint: rt leg, severe pain in pinched nerve Time Seen by Provider: 10/21/21 15:57 Source: patient Mode of arrival: Wheelchair Related Data Home Medications Medication Instructions Recorded Confirmed aspirin 81 mg tablet,delayed 81 mg PO DAILY #0 01/14/18 03/01/21 release atorvastatin 40 mg tablet (Lipitor) 40 mg PO BEDTIME #0 01/14/18 03/01/21 amlodipine 5 mg tablet 5 mg PO DAILY 10/31/18 03/01/21 metoprolol succinate 25 mg 12.5 mg PO DAILY 10/31/18 03/01/21 tablet,extended release 24 hr sildenafil (pulm.hypertension) 20 100 mg PO DAILY PRN 10/31/18 03/01/21 mg tablet melatonin 10 mg tablet 10 mg PO BEDTIME PRN 02/12/19 03/01/21 Previous Rx's Medication Instructions Recorded lisinopril 40 mg tablet (Zestril) 40 mg PO DAILY #90 tab 04/04/19 citalopram 20 mg tablet See Rx Instructions .ROUTE 04/11/21 .COMPLEX #30 tab clonazepam 0.5 mg tablet 0.5 mg PO DAILY PRN #60 tab 10/10/21 cyclobenzaprine 10 mg tablet 10 mg PO Q8H PRN #21 tab 10/21/21 methylprednisolone 4 mg tablets in See Rx Instructions .ROUTE 10/21/21 a dose pack (Medrol (Murray)) .COMPLEX #21 ea Allergies Allergy/AdvReac Type Severity Reaction Status Date / Time No Known Drug Allergies Allergy Verified 03/01/21 15:18 Patient History Medical History Chronic sinusitis Coronary artery disease (~11/2017) Generalized anxiety disorder (09/26/17) Hyperlipidemia Hypertension (03/02/14) Major depressive disorder (08/16/11) Neuropathy (12/11/14) Obesity (BMI 30-39.9) Obstructive sleep apnea (08/16/11) Psoriasis (08/16/11) Surgical History Status post arthroscopy Stented coronary artery Family History Sister Hypertension Social History marital status: household members: spouse Smoking Status: Current some day smoker alcohol intake: current substance use type: does not use Smoking Status: Current some day smoker tobacco type: vaping alcohol intake frequency: 3 or more drinks per day Substance Use Type: marijuana Exam Initial Vital Signs Initial Vital Signs: Vital Signs Temperature 97.9 F 10/21/21 15:26 Pulse Rate 82 10/21/21 15:26 Respiratory Rate 18 10/21/21 15:26 Blood Pressure 99/56 L 10/21/21 15:26 Pulse Oximetry 97 10/21/21 15:26 Course Orders Ordered: ED Orders 10/21/21 15:44 EKG-12 Lead Stat 10/21/21 16:02 XR chest 1V Stat COVID19 -Nasal swab/Pre-Proc Stat 10/21/21 16:43 Complete Blood Count AUTO DIFF Stat Comprehensive Metabolic Panel Stat Lipase Stat Magnesium Stat Partial Thromboplastin Time Stat Prothrombin Time INR Stat Troponin & CK Cardiac Panel Stat Discontinued Medications Sodium Chloride (Normal Saline 0.9%) 1,000 mls @ 1,000 mls/hr IV BOLUS ONE Stop: 10/21/21 17:01 Last Admin: 10/21/21 17:56 Dose: Not Given Documented by: LISA Vital Signs Vital signs: Vital Signs - 8 hr 10/21/21 15:26 10/21/21 17:30 10/21/21 18:11 Temperature 97.9 F Pulse Rate 82 72 66 Respiratory Rate 18 16 18 Blood Pressure 99/56 L 108/58 L 116/56 L Pulse Oximetry 97 99 96 MDM - Dizziness Lab Data Result diagrams: 10/21/21 16:43 10/21/21 16:43 Labs: Lab Results 10/21/21 10/21/21 10/21/21 Range/Units 16:02 16:43 16:43 WBC 12.3 H (4.5-11.0) X10^3/uL RBC 4.87 (4.5-5.9) X10^6/uL Hgb 14.6 (13.5-17.5) g/dL Hct 43.5 (41-53) % MCV 89.5 (80-100) fL MCH 30.1 (26-34) PG MCHC 33.6 (30-36) % RDW 13.3 (11.6-14.8) % Plt Count 236 (150-400) X10^3/uL Neut % (Auto) 79.6 H (50-75) % Lymph % (Auto) 13.3 L (25-40) % [place] % (Auto) 6.2 (3-14) % Eos % (Auto) 0.4 L (2-4) % Baso % (Auto) 0.5 (0-2) % Neut # (Auto) 9800 H (9260-9591) /uL Lymph # (Auto) 1600 (0683-4647) /uL [place] # (Auto) 800 (0-900) /uL Eos # (Auto) 100 (0-450) /uL Baso # (Auto) 100 (0-100) /uL PT 11.8 (10.1-12.7) SECONDS INR 1.1 (0.9-1.3) APTT 33 (26.4-36.2) SECONDS Sodium (137-145) mmol/L Potassium (3.4-5.1) mmol/L Chloride (98-107) mmol/L Carbon Dioxide (22-32) mmol/L BUN (9-20) mg/dL Creatinine (0.66-1.25) mg/dL Estimated GFR (>60) mL/min BUN/Creatinine Ratio (6-22) Glucose (80-110) mg/dL Calcium (8.4-10.2) mg/dL Magnesium (1.6-2.3) mg/dL Total Bilirubin (0.2-1.3) mg/dL AST (17-59) IU/L ALT (<50) IU/L Alkaline Phosphatase (38-126) U/L Total Creatine Kinase (55-170) U/L CK-MB (CK-2) CK-MB (CK-2) Rel Index Troponin I (0.01-0.034) ng/mL Total Protein (6.3-8.2) g/dL Albumin (3.5-5.0) g/dL Globulin (1.7-4.1) g/dL Albumin/Globulin Ratio (1.0-2.8) Lipase (23-300) U/L SARS-CoV-2 (PCR) Negative (Negative) 10/21/21 Range/Units 16:43 WBC (4.5-11.0) X10^3/uL RBC (4.5-5.9) X10^6/uL Hgb (13.5-17.5) g/dL Hct (41-53) % MCV (80-100) fL MCH (26-34) PG MCHC (30-36) % RDW (11.6-14.8) % Plt Count (150-400) X10^3/uL Neut % (Auto) (50-75) % Lymph % (Auto) (25-40) % [place] % (Auto) (3-14) % Eos % (Auto) (2-4) % Baso % (Auto) (0-2) % Neut # (Auto) (6704-4930) /uL Lymph # (Auto) (7436-4761) /uL [place] # (Auto) (0-900) /uL Eos # (Auto) (0-450) /uL Baso # (Auto) (0-100) /uL PT (10.1-12.7) SECONDS INR (0.9-1.3) APTT (26.4-36.2) SECONDS Sodium 141 (137-145) mmol/L Potassium 4.7 (3.4-5.1) mmol/L Chloride 104 (98-107) mmol/L Carbon Dioxide 30 (22-32) mmol/L BUN 15 (9-20) mg/dL Creatinine 1.45 H (0.66-1.25) mg/dL Estimated GFR 49.0 L (>60) mL/min BUN/Creatinine Ratio 10.3 (6-22) Glucose 123 H (80-110) mg/dL Calcium 9.6 (8.4-10.2) mg/dL Magnesium 2.0 (1.6-2.3) mg/dL Total Bilirubin 0.8 (0.2-1.3) mg/dL AST 24 (17-59) IU/L ALT 20 (<50) IU/L Alkaline Phosphatase 73 (38-126) U/L Total Creatine Kinase 90 (55-170) U/L CK-MB (CK-2) TNP CK-MB (CK-2) Rel Index TNP Troponin I < 0.012 (0.01-0.034) ng/mL Total Protein 7.1 (6.3-8.2) g/dL Albumin 4.4 (3.5-5.0) g/dL Globulin 2.7 (1.7-4.1) g/dL Albumin/Globulin Ratio 1.6 (1.0-2.8) Lipase 35 (23-300) U/L SARS-CoV-2 (PCR) (Negative) Discharge Plan Departure Patient Disposition: Home Clinical Impression: Low back pain radiating to left leg Instructions: DI for Low Back Pain Activity Restrictions/Additional Instructions: light duty activities until follow-up with PCP. Prescriptions: New cyclobenzaprine 10 mg tablet 10 mg PO Q8H PRN (Reason: muscle spasm) Qty: 21 0RF methylprednisolone [Medrol (Murray)] 4 mg tablets,dose pack See Rx Instructions .ROUTE .COMPLEX Qty: 21 0RF Rx Instructions: orally per package directions No Action aspirin 81 MG tablet,delayed release (DR/EC) 81 mg PO DAILY Qty: 0 0RF atorvastatin [Lipitor] 40 MG tablet 40 mg PO BEDTIME Qty: 0 0RF lisinopril [Zestril] 40 mg tablet 40 mg PO DAILY Qty: 90 2RF citalopram 20 mg tablet See Rx Instructions .ROUTE .COMPLEX Qty: 30 5RF Dose Instruction: TAKE 1 TABLET BY MOUTH DAILY Rx Instructions: TAKE 1 TABLET BY MOUTH DAILY clonazepam 0.5 mg tablet 0.5 mg PO DAILY PRN (Reason: anxiety) Qty: 60 0RF amlodipine 5 mg tablet 5 mg PO DAILY 0RF Label Comments: TAKE 1 TABLET (5 MG TOTAL) BY MOUTH DAILY. metoprolol succinate 25 mg Tablet Extended Release 24 Hr 12.5 mg PO DAILY 0RF sildenafil (pulm.hypertension) 20 mg Tablet 100 mg PO DAILY PRN (Reason: Sexual Activity) 0RF melatonin 10 mg tablet 10 mg PO BEDTIME PRN0RF Referrals: Pino Pichardo MD [Primary Care Provider] -
--- NOTE | 2021-10-21 16:02 | DI.RAD.S_ITS ---
PROCEDURE: XR CHEST 1V INDICATIONS: chest pain TECHNIQUE: One view of the chest was acquired. COMPARISON: [facility], , CHEST 2 VIEW, 12/07/2010, 9:53. FINDINGS: Surgical changes and devices: None. Lungs and pleura: An incomplete inspiratory result is noted, causing a crowded appearance to the lung markings. No focal infiltrates are seen. No pneumothorax or significant pleural effusions are seen. Mediastinum: Mediastinal contours appear normal. Heart size is normal. Bones and chest wall: No suspicious bony lesions. Age-appropriate bony degenerative changes are seen. Overlying soft tissues appear unremarkable. IMPRESSION: Limited portable chest examination, without a significant cardiopulmonary abnormality identified. Dictated by: Paolo Farrell M.D. on 10/21/2021 at 15:41 Approved by: Paolo Farrell M.D. on 10/21/2021 at 15:46
[2021-10-21 16:50] LABS: Add Manual Diff / Slide Review NO; Basophils Absolute Auto 100 /uL (0-100); Basophils Percent Auto 0.5 % (0-2); Eosinophils Absolute Auto 100 /uL (0-450); Eosinophils Percent Auto 0.4 % (2-4); Hematocrit 43.5 % (41-53); Hemoglobin 14.6 g/dL (13.5-17.5); Lymphocytes Absolute Auto 1600 /uL (1100-4500); Lymphocytes Percent Auto 13.3 % (25-40); Mean Corpuscular HGB Conc 33.6 % (30-36); Mean Corpuscular Hemoglobin 30.1 PG (26-34); Mean Corpuscular Volume 89.5 fL (80-100); Monocytes Absolute Auto 800 /uL (0-900); Monocytes Percent Auto 6.2 % (3-14); Neutrophils Absolute Auto 9800 /uL (1500-7000); Neutrophils Percent Auto 79.6 % (50-75); Platelet Count 236 X10^3/uL (150-400); Red Blood Cell Count 4.87 X10^6/uL (4.5-5.9); Red Cell Distribution Width 13.3 % (11.6-14.8); White Blood Cell Count 12.3 X10^3/uL (4.5-11.0)
[2021-10-21 16:57] LABS: INR 1.1 (0.9-1.3); Prothrombin Time 11.8 SECONDS (10.1-12.7)
[2021-10-21 16:59] LABS: PTT Partial Thromboplastin Tim 33 SECONDS (26.4-36.2)
[2021-10-21 17:03] LABS: Alanine Aminotransferase 20 IU/L (<50); Albumin 4.4 g/dL (3.5-5.0); Albumin Globulin Ratio 1.6 (1.0-2.8); Alkaline Phosphatase 73 U/L (38-126); Aspartate Aminotransferase 24 IU/L (17-59); BUN Creatinine Ratio 10.3 (6-22); Bilirubin Total 0.8 mg/dL (0.2-1.3); Blood Urea Nitrogen 15 mg/dL (9-20); Calcium 9.6 mg/dL (8.4-10.2); Carbon Dioxide 30 mmol/L (22-32); Chloride 104 mmol/L (98-107); Creatine Kinase 90 U/L (55-170); Globulin 2.7 g/dL (1.7-4.1); Glucose 123 mg/dL (80-110); HEMOLYSIS < 15 (0-50); Lipase 35 U/L (23-300); Potassium 4.7 mmol/L (3.4-5.1); Sodium 141 mmol/L (137-145); Total Protein 7.1 g/dL (6.3-8.2)
[2021-10-21 17:10] LABS: COVID19 -Nasal RAPID Negative (Negative)
[2021-10-21 17:14] LABS: Troponin I < 0.012 ng/mL (0.01-0.034)
[2021-10-21 17:30] VITALS: BP 108/58; PULSE 72; RESP 16; O2SAT 99
--- NOTE | 2021-10-21 17:44 | ED_ITS ---
HPI - Back Pain/Injury <Cipriano Esquivel PA-C - Last Filed: 10/21/21 17:53> General Chief Complaint: Dizziness Stated Complaint: rt leg, severe pain in pinched nerve Time Seen by Provider: 10/21/21 15:57 Source: patient History of Present Illness HPI Narrative: Patient is a 66-year-old male presents to the ED after having a sudden attack of low back pain with pain radiating down his left leg to his knee. He reports that he had this acute episode today where the pain was so severe that he began hyperventilating became concerned and ambulance was called. He reports that his breathing became increased and he believes he was hyperventilating which had caused him to have a syncopal episode has resolved. reports that he was passed out for about 1 minute. He denies any chest pain shortness of breath nausea vomiting diarrhea cough congestion. He states that the back pain and left leg pain eased up and the pain improved over time. He was prescribed diclofenac t.i.d. by his PCP and was also taking 800 mg of ibuprofen t.i.d. in addition. Patient had tried some marijuana today with no improvement in his symptoms. He has tried muscle relaxers in the past which have not offered him any relief in his pain. 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 MRI of the lumbar spine is pending approval. Related Data Home Medications Medication Instructions Recorded Confirmed aspirin 81 mg tablet,delayed 81 mg PO DAILY #0 01/14/18 03/01/21 release atorvastatin 40 mg tablet (Lipitor) 40 mg PO BEDTIME #0 01/14/18 03/01/21 amlodipine 5 mg tablet 5 mg PO DAILY 10/31/18 03/01/21 metoprolol succinate 25 mg 12.5 mg PO DAILY 10/31/18 03/01/21 tablet,extended release 24 hr sildenafil (pulm.hypertension) 20 100 mg PO DAILY PRN 10/31/18 03/01/21 mg tablet melatonin 10 mg tablet 10 mg PO BEDTIME PRN 02/12/19 03/01/21 Previous Rx's Medication Instructions Recorded lisinopril 40 mg tablet (Zestril) 40 mg PO DAILY #90 tab 04/04/19 citalopram 20 mg tablet See Rx Instructions .ROUTE 04/11/21 .COMPLEX #30 tab clonazepam 0.5 mg tablet 0.5 mg PO DAILY PRN #60 tab 10/10/21 cyclobenzaprine 10 mg tablet 10 mg PO Q8H PRN #21 tab 10/21/21 methylprednisolone 4 mg tablets in See Rx Instructions .ROUTE 10/21/21 a dose pack (Medrol (Murray)) .COMPLEX #21 ea Allergies Allergy/AdvReac Type Severity Reaction Status Date / Time No Known Drug Allergies Allergy Verified 03/01/21 15:18 Review of Systems <Cipriano Esquivel PA-C - Last Filed: 10/21/21 17:53> Review of Systems ROS Unobtainable: All systems reviewed & are unremarkable except as noted in HPI and below Constitutional Constitutional: Denies chills, Denies fatigue, Denies fever(s), Denies frequent falls, Denies lethargy and Denies weakness Eyes Eyes: Denies change in vision, Denies eye discharge, Denies irritation and Denies loss of vision ENT Ears, Nose, Mouth, and Throat: Denies change in voice, Denies dizziness, Denies neck pain, Denies sore throat and Denies throat swelling Cardiovascular Cardiovascular: Denies chest pain, Denies irregular heart rhythm, Denies lighthe adedness, Denies palpitations, Denies dyspnea, Denies dyspnea on exertion and Denies orthopnea Respiratory Respiratory: Denies cough, Denies dyspnea, Denies dyspnea on exertion and Denies wheezing Gastrointestinal Gastrointestinal: Denies abdominal pain, Denies change in bowel habits, Denies diarrhea, Denies nausea and Denies vomiting Genitourinary Genitourinary: Denies hematuria, Denies flank pain, Denies urinary incontinence and Denies urinary urgency Musculoskeletal Musculoskeletal: Denies back pain, Denies muscle weakness, Denies neck pain, Denies numbness and Denies tingling Integumentary/Breasts Skin/Breast: Denies pruritus, Denies erythema, Denies rash and Denies wounds Neurologic Neurologic: Denies behavioral changes, Denies confusion, Denies dizziness, Denies frequent falls, Denies loss of vision, Denies numbness, Reports radicular pain, Reports restless legs, Denies tingling and Denies weakness Psychiatric Psychiatric: Denies anxiety, Denies behavioral changes, Denies confusion, Denies depression, Denies homicidal ideation and Denies suicidal ideation Endocrine Endocrine: Denies fatigue, Denies flushing and Denies palpitations Hematologic/Lymphatic Hematologic/Lymphatic: Denies easy bruising Allergic/Immunologic Allergic/Immunologic: Denies urticaria, Denies throat swelling and Denies wheezing Patient History <Cipriano Esquivel PA-C - Last Filed: 10/21/21 17:53> Medical History Chronic sinusitis Coronary artery disease (~11/2017) Generalized anxiety disorder (09/26/17) Hyperlipidemia Hypertension (03/02/14) Major depressive disorder (08/16/11) Neuropathy (12/11/14) Obesity (BMI 30-39.9) Obstructive sleep apnea (08/16/11) Psoriasis (08/16/11) Surgical History Status post arthroscopy Stented coronary artery Family History Sister Hypertension Social History marital status: household members: spouse Smoking Status: Current some day smoker alcohol intake: current substance use type: does not use Smoking Status: Current some day smoker tobacco type: vaping alcohol intake frequency: 3 or more drinks per day Substance Use Type: marijuana Exam <Cipriano Esquivel PA-C - Last Filed: 10/21/21 17:53> Initial Vital Signs Initial Vital Signs: Vital Signs Temperature 97.9 F 10/21/21 15:26 Pulse Rate 82 10/21/21 15:26 Respiratory Rate 18 10/21/21 15:26 Blood Pressure 99/56 L 10/21/21 15:26 Pulse Oximetry 97 10/21/21 15:26 Const General: cooperative, healthy appearing, comfortable and well developed Nutritional Appearance: average body habitus and obese Orientation: Orientation [facility] Head: normal to inspection Ears: hearing grossly normal bilaterally Nose: external nose normal Face and sinus: normal facial exam Mouth: oral mucosae normal Eyes General: appearance normal, both eyes and all related structures Pupils: PERRL Resp Effort & Inspection: normal respiratory effort and able to speak in complete sentences Auscultation: clear to auscultation bilaterally Percussion: percussion normal Cardio Palpation: normal PMI Rate: regular rate Rhythm: regular rhythm Heart Sounds: S1 normal and S2 normal GI Inspection: normal to inspection Palpation: soft and no hepatosplenomegaly Percussion: normal to percussion Auscultation: normal bowel sounds Back/Spine/Pelvis Back: normal to inspection and back tenderness Course <Cipriano Esquivel PA-C - Last Filed: 10/21/21 17:53> Orders Ordered: ED Orders 10/21/21 15:44 EKG-12 Lead Stat 10/21/21 16:02 XR chest 1V Stat COVID19 -Nasal swab/Pre-Proc Stat 10/21/21 16:43 Complete Blood Count AUTO DIFF Stat Comprehensive Metabolic Panel Stat Lipase Stat Magnesium Stat Partial Thromboplastin Time Stat Prothrombin Time INR Stat Troponin & CK Cardiac Panel Stat Discontinued Medications Sodium Chloride (Normal Saline 0.9%) 1,000 mls @ 1,000 mls/hr IV BOLUS ONE Stop: 10/21/21 17:01 Last Admin: 10/21/21 17:56 Dose: Not Given Documented by: LISA Vital Signs Vital signs: Vital Signs - 8 hr 10/21/21 15:26 10/21/21 17:30 10/21/21 18:11 Temperature 97.9 F Pulse Rate 82 72 66 Respiratory Rate 18 16 18 Blood Pressure 99/56 L 108/58 L 116/56 L Pulse Oximetry 97 99 96 MDM - Back Pain/Injury <Cipriano Esquivel PA-C - Last Filed: 10/21/21 17:53> Differential Diagnosis Differential diagnosis: Likely lumbar radiculopathy and strain of lumbar region Lab Data Result diagrams: 10/21/21 16:43 10/21/21 16:43 Labs: Lab Results 10/21/21 10/21/21 10/21/21 Range/Units 16:02 16:43 16:43 WBC 12.3 H (4.5-11.0) X10^3/uL RBC 4.87 (4.5-5.9) X10^6/uL Hgb 14.6 (13.5-17.5) g/dL Hct 43.5 (41-53) % MCV 89.5 (80-100) fL MCH 30.1 (26-34) PG MCHC 33.6 (30-36) % RDW 13.3 (11.6-14.8) % Plt Count 236 (150-400) X10^3/uL Neut % (Auto) 79.6 H (50-75) % Lymph % (Auto) 13.3 L (25-40) % [place] % (Auto) 6.2 (3-14) % Eos % (Auto) 0.4 L (2-4) % Baso % (Auto) 0.5 (0-2) % Neut # (Auto) 9800 H (5799-6535) /uL Lymph # (Auto) 1600 (5153-9383) /uL [place] # (Auto) 800 (0-900) /uL Eos # (Auto) 100 (0-450) /uL Baso # (Auto) 100 (0-100) /uL PT 11.8 (10.1-12.7) SECONDS INR 1.1 (0.9-1.3) APTT 33 (26.4-36.2) SECONDS Sodium (137-145) mmol/L Potassium (3.4-5.1) mmol/L Chloride (98-107) mmol/L Carbon Dioxide (22-32) mmol/L BUN (9-20) mg/dL Creatinine (0.66-1.25) mg/dL Estimated GFR (>60) mL/min BUN/Creatinine Ratio (6-22) Glucose (80-110) mg/dL Calcium (8.4-10.2) mg/dL Magnesium (1.6-2.3) mg/dL Total Bilirubin (0.2-1.3) mg/dL AST (17-59) IU/L ALT (<50) IU/L Alkaline Phosphatase (38-126) U/L Total Creatine Kinase (55-170) U/L CK-MB (CK-2) CK-MB (CK-2) Rel Index Troponin I (0.01-0.034) ng/mL Total Protein (6.3-8.2) g/dL Albumin (3.5-5.0) g/dL Globulin (1.7-4.1) g/dL Albumin/Globulin Ratio (1.0-2.8) Lipase (23-300) U/L SARS-CoV-2 (PCR) Negative (Negative) 10/21/21 Range/Units 16:43 WBC (4.5-11.0) X10^3/uL RBC (4.5-5.9) X10^6/uL Hgb (13.5-17.5) g/dL Hct (41-53) % MCV (80-100) fL MCH (26-34) PG MCHC (30-36) % RDW (11.6-14.8) % Plt Count (150-400) X10^3/uL Neut % (Auto) (50-75) % Lymph % (Auto) (25-40) % [place] % (Auto) (3-14) % Eos % (Auto) (2-4) % Baso % (Auto) (0-2) % Neut # (Auto) (1355-7927) /uL Lymph # (Auto) (8632-6566) /uL [place] # (Auto) (0-900) /uL Eos # (Auto) (0-450) /uL Baso # (Auto) (0-100) /uL PT (10.1-12.7) SECONDS INR (0.9-1.3) APTT (26.4-36.2) SECONDS Sodium 141 (137-145) mmol/L Potassium 4.7 (3.4-5.1) mmol/L Chloride 104 (98-107) mmol/L Carbon Dioxide 30 (22-32) mmol/L BUN 15 (9-20) mg/dL Creatinine 1.45 H (0.66-1.25) mg/dL Estimated GFR 49.0 L (>60) mL/min BUN/Creatinine Ratio 10.3 (6-22) Glucose 123 H (80-110) mg/dL Calcium 9.6 (8.4-10.2) mg/dL Magnesium 2.0 (1.6-2.3) mg/dL Total Bilirubin 0.8 (0.2-1.3) mg/dL AST 24 (17-59) IU/L ALT 20 (<50) IU/L Alkaline Phosphatase 73 (38-126) U/L Total Creatine Kinase 90 (55-170) U/L CK-MB (CK-2) TNP CK-MB (CK-2) Rel Index TNP Troponin I < 0.012 (0.01-0.034) ng/mL Total Protein 7.1 (6.3-8.2) g/dL Albumin 4.4 (3.5-5.0) g/dL Globulin 2.7 (1.7-4.1) g/dL Albumin/Globulin Ratio 1.6 (1.0-2.8) Lipase 35 (23-300) U/L SARS-CoV-2 (PCR) (Negative) MDM Narrative Medical decision making narrative: Patient was evaluated today for an acute episode of low back pain which caused an acute episode of hyperventilation. I believe his syncopal episode was attributed to that and his workup today was essentially negative. Based on his symptoms of his low back pain with radicular symptoms down his left leg I would recommend a steroid pack and a muscle relaxer to add to his anti-inflammatory regimen. I would recommend that he discontinue his ibuprofen and his diclofenac until follow-up with PCP. Tylenol OTC as directed for pain. Discharge Plan Departure Patient Disposition: Home Clinical Impression: Low back pain radiating to left leg Instructions: DI for Low Back Pain Activity Restrictions/Additional Instructions: light duty activities until follow-up with PCP. Prescriptions: New cyclobenzaprine 10 mg tablet 10 mg PO Q8H PRN (Reason: muscle spasm) Qty: 21 0RF methylprednisolone [Medrol (Murray)] 4 mg tablets,dose pack See Rx Instructions .ROUTE .COMPLEX Qty: 21 0RF Rx Instructions: orally per package directions No Action aspirin 81 MG tablet,delayed release (DR/EC) 81 mg PO DAILY Qty: 0 0RF atorvastatin [Lipitor] 40 MG tablet 40 mg PO BEDTIME Qty: 0 0RF lisinopril [Zestril] 40 mg tablet 40 mg PO DAILY Qty: 90 2RF citalopram 20 mg tablet See Rx Instructions .ROUTE .COMPLEX Qty: 30 5RF Dose Instruction: TAKE 1 TABLET BY MOUTH DAILY Rx Instructions: TAKE 1 TABLET BY MOUTH DAILY clonazepam 0.5 mg tablet 0.5 mg PO DAILY PRN (Reason: anxiety) Qty: 60 0RF amlodipine 5 mg tablet 5 mg PO DAILY 0RF Label Comments: TAKE 1 TABLET (5 MG TOTAL) BY MOUTH DAILY. metoprolol succinate 25 mg Tablet Extended Release 24 Hr 12.5 mg PO DAILY 0RF sildenafil (pulm.hypertension) 20 mg Tablet 100 mg PO DAILY PRN (Reason: Sexual Activity) 0RF melatonin 10 mg tablet 10 mg PO BEDTIME PRN0RF Referrals: Pino Pichardo MD [Primary Care Provider] -
[2021-10-21 18:11] VITALS: BP 116/56; PULSE 66; RESP 18; O2SAT 96
== END 2021-10-21 18:13 | disposition home or self-care (01) ==
PROVIDERS: Emergency Medicine; Emergency Provider Physician Assistant; PCP Family Medicine
DX: M54.50 Low back pain, unspecified (principal); F17.290 Nicotine dependence, other tobacco product, uncomplicated; Z20.822 Contact with and (suspected) exposure to COVID-19
CPT/HCPCS: 36415; 71045; 80053; 82550; 83690; 83735; 84484; 85025; 85610; 85730; 87635; 93005; 99284; C9803

== ENCOUNTER → 2021-10-28 07:18 | Outpatient (CLI) | payer OTHER, SELFPAY ==
[2021-06-27 13:44] VITALS: BMI 36.9
--- NOTE | 2021-10-28 07:19 | DI.MRI.S_ITS ---
PROCEDURE: MR LUMBAR SPINE WO CON INDICATIONS: Contusion of lower back and pelvis TECHNIQUE: Noncontrast sagittal T1 spin echo and T2 fast echo, sagittal STIR, axial T1 and T2 fast spin echo through the lumbar spine. In cases with scoliosis, additional coronal T2 fast spin echo may be performed. COMPARISON: [facility], MR, MR LUMBAR SPINE WO CON, 12/29/2020, 18:02. [facility], CR, XR LUMBAR SPINE 2-3V, 01/22/2019, 14:43. FINDINGS: Image quality: Excellent. Alignment and Curvature: 5 lumbar type vertebral bodies are present by plain film. There is mild grade 1 retrolisthesis of T12 on L1, L1 on L2, L2 on L3, and L3 on L4. Bone Marrow: Marrow is of normal overall signal. No acute vertebral body compression fractures. Mild reactive signal within the endplates adjacent to the lumbar and lower thoracic intervertebral discs. Spinal Cord: Conus medullaris terminates at the mid L1 level. Visualized cord demonstrates normal signal and size. Paraspinous Soft Tissues: No paravertebral masses. T12-L1: Mild disc height loss and desiccation. Mild diffuse disc bulge. No significant canal, or foraminal stenosis. No significant change. L1-L2: Mild disc height loss and desiccation. Mild diffuse disc bulge. Mild epidural lipomatosis. Mild canal stenosis. Mild bilateral foraminal stenosis. No significant change. L2-L3: Mild disc desiccation and diffuse disc bulge. Mild epidural lipomatosis. Mild canal stenosis. Mild bilateral foraminal stenosis. No significant change. L3-L4: Mild disc height loss and desiccation. Mild diffuse disc bulge with superimposed left far lateral disc extrusion, increased from the prior examination. Mild facet and ligamentum flavum hypertrophy. Mild epidural lipomatosis. Mild canal stenosis is unchanged. Moderate right foraminal stenosis is unchanged. There is increased, severe left foraminal stenosis with new left L3 nerve root compression. L4-L5: Mild disc desiccation and diffuse disc bulge. Mild facet and ligamentum flavum hypertrophy. Mild canal stenosis. Moderate bilateral foraminal stenosis. No significant change. L5-S1: Moderate bilateral facet hypertrophy. No significant canal stenosis. Moderate bilateral foraminal stenosis. No significant change. IMPRESSION: 1. Multilevel degenerative disc and facet disease, as well as ligamentum flavum hypertrophy and epidural lipomatosis. 2. New left far lateral disc extrusion at L3-L4, causing left L3 nerve root compression. Recommend correlation with clinical symptoms to ascertain relevance of this finding. 3. Mild multilevel canal stenoses. Dictated by: Joan Cavazos M.D. on 10/28/2021 at 8:36 Approved by: Joan Cavazos M.D. on 10/28/2021 at 8:39
== END ==
PROVIDERS: PCP Family Medicine; Referring Provider Preventive Medicine Occupational Medicine; Visit Provider Preventive Medicine Occupational Medicine
DX: S30.0XXA Contusion of lower back and pelvis, initial encounter (principal); M51.36 Other intervertebral disc degeneration, lumbar region; M51.26 Other intervertebral disc displacement, lumbar region; M48.061 Spinal stenosis, lumbar region without neurogenic claudication; M48.07 Spinal stenosis, lumbosacral region
CPT/HCPCS: 72148

== ENCOUNTER → 2022-01-03 10:21 | Outpatient (CLI) | payer OTHER, SELFPAY ==
[2021-06-27 13:44] VITALS: BMI 36.9
[2022-01-03 12:10] LABS: BUN Creatinine Ratio 17.2 (6-22); Blood Urea Nitrogen 15 mg/dL (9-20); Calcium 9.4 mg/dL (8.4-10.2); Carbon Dioxide 33 mmol/L (22-32); Chloride 102 mmol/L (98-107); Estimated Glomerular Filt Rate > 60.0 mL/min (>60); Glucose 106 mg/dL (80-110); HEMOLYSIS < 15 (0-50); Potassium 4.8 mmol/L (3.4-5.1); Sodium 141 mmol/L (137-145)
[2022-01-03 12:36] LABS: Prostate Specific Antigen Scrn 3.85 ng/mL (0.1-4.0)
== END ==
PROVIDERS: PCP Family Medicine; Referring Provider Physician Assistant; Visit Provider Physician Assistant
DX: R79.89 Other specified abnormal findings of blood chemistry (principal); Z12.5 Encounter for screening for malignant neoplasm of prostate
CPT/HCPCS: 36415; 80048; G0103

== ENCOUNTER → 2022-08-07 08:55 | Outpatient (CLI) | payer OTHER, SELFPAY ==
[2021-06-27 13:44] VITALS: BMI 36.9
[2022-08-07 10:06] LABS: Add Manual Diff / Slide Review NO; Basophils Absolute Auto 100 /uL (0-100); Basophils Percent Auto 1.1 % (0-2); Eosinophils Absolute Auto 200 /uL (0-450); Eosinophils Percent Auto 2.7 % (2-4); Hematocrit 44.8 % (41-53); Hemoglobin 14.8 g/dL (13.5-17.5); Lymphocytes Absolute Auto 2100 /uL (1100-4500); Mean Corpuscular HGB Conc 32.9 % (30-36); Mean Corpuscular Hemoglobin 29.6 PG (26-34); Mean Corpuscular Volume 89.7 fL (80-100); Monocytes Absolute Auto 500 /uL (0-900); Monocytes Percent Auto 8.3 % (3-14); Neutrophils Absolute Auto 3500 /uL (1500-7000); Neutrophils Percent Auto 54.9 % (50-75); Platelet Count 219 X10^3/uL (150-400); Red Blood Cell Count 4.99 X10^6/uL (4.5-5.9); Red Cell Distribution Width 13.6 % (11.6-14.8); White Blood Cell Count 6.4 X10^3/uL (4.5-11.0)
[2022-08-07 10:38] LABS: Alanine Aminotransferase 22 IU/L (<50); Albumin Globulin Ratio 1.5 (1.0-2.8); Alkaline Phosphatase 64 U/L (38-126); Aspartate Aminotransferase 24 IU/L (17-59); BUN Creatinine Ratio 17.6 (6-22); Bilirubin Total 0.6 mg/dL (0.2-1.3); Blood Urea Nitrogen 15 mg/dL (9-20); Calcium 9.1 mg/dL (8.4-10.2); Carbon Dioxide 26 mmol/L (22-32); Chloride 104 mmol/L (98-107); Cholesterol 204 mg/dL (140-199); Estimated Glomerular Filt Rate > 60 mL/min (>60); Globulin 2.7 g/dL (1.7-4.1); Glucose 98 mg/dL (80-110); HDL Cholesterol 47 mg/dL (40-60); HEMOLYSIS < 15 (0-50); LDL Cholesterol Calculated 117 mg/dL (<100); Sodium 139 mmol/L (137-145); Total Protein 6.7 g/dL (6.3-8.2); Triglycerides 199 mg/dL (35-150)
[2022-08-07 10:52] LABS: Creatinine Urine Random 44.7 mg/dL; Microalbumi Creatinin Ratio Ur 13.4 ug/mg CR (<30); Microalbumin Urine Random 0.6 mg/dL (0-1.6)
== END ==
PROVIDERS: PCP Family Medicine; Referring Provider Physician Assistant; Visit Provider Physician Assistant
DX: I10 Essential (primary) hypertension (principal); E78.5 Hyperlipidemia, unspecified; I25.10 Atherosclerotic heart disease of native coronary artery without angina pectoris; R10.9 Unspecified abdominal pain
CPT/HCPCS: 36415; 80053; 80061; 82043; 82570; 85025

== ENCOUNTER → 2022-10-04 16:36 | Outpatient (CLI) | payer OTHER, SELFPAY ==
[2021-06-27 13:44] VITALS: BMI 36.9
[2022-10-04 18:37] LABS: TSH w/ Reflex to FT4 2.25 uIU/mL (0.47-4.68)
== END ==
PROVIDERS: PCP Family Medicine; Referring Provider Physician Assistant; Visit Provider Physician Assistant
DX: R63.4 Abnormal weight loss (principal)
CPT/HCPCS: 36415; 84443

== ENCOUNTER 2022-11-14 08:55 | Day surgery (SDC) | payer OTHER, SELFPAY ==
[2021-06-27 13:44] VITALS: BMI 36.9
--- NOTE | 2022-11-14 | PATH_ITS ---
[facility] Accession Number: [id number] No. of containers..01 Tissue . 01 Material submitted: . rectum - RECTUM POLYP . 01 Diagnosis: Rectum, Polypectomy: Hyperplastic polyp, two fragments. MRV 11/20/2022 1607 Local . 01 Electronically signed: . Brittany Echevarria MD, Pathologist NPI- [id number] . 01 Gross description: . RECTUM POLYP: Received in formalin are 2 fragment(s) of bautista, soft tissue measuring 0.1 x 0.1 x 0.1 cm to 0.3 x 0.3 x 0.3 cm submitted entirely in 1 cassette(s) /MATTHEW 11/15/2022 2332 Local . 01 Pathologist provided ICD-10: K62.1 . 01 CPT . 937600 Specimen Comment: A courtesy copy of this report has been sent to [phone] Performed at: 01 [facility] [address] [place] [address], [place], [place] [id number] MD Richy Soares MD Phone: [phone]
[2022-11-14 09:27] VITALS: BMI 36.9
[2022-11-14 09:31] VITALS: BP 146/70; PULSE 55; RESP 16; TEMP 36.7; O2SAT 99
[2022-11-14] MEDS: LACTATED RINGERS 1,000 ML 200 ML IV (09:40)
--- NOTE | 2022-11-14 09:58 | PM.HP.1 ---
History of Present Illness History of Present Illness Date Patient Seen: 11/14/22 Time Patient Seen: 09:58 Chief complaint: SDC Narrative: The patient presents for colorectal screening. He is a personal history of colonic polyps last colonoscopy was 5 years ago. No personal or family history of colon cancer. He occasionally has left lower quadrant abdominal pain no blood per rectum nausea vomiting. He has never been formally diagnosed with diverticular disease. Patient History Medical History Chronic sinusitis Coronary artery disease (~11/2017) Generalized anxiety disorder (09/26/17) Hyperlipidemia Hypertension (03/02/14) Major depressive disorder (08/16/11) Neuropathy (12/11/14) Obesity (BMI 30-39.9) Obstructive sleep apnea (08/16/11) Psoriasis (08/16/11) Surgical History Status post arthroscopy Stented coronary artery Family & Social History Family History Sister Hypertension Social History: household members spouse Tobacco & Substance use: Tobacco type smokeless tobacco Smoking Status Current some day smoker alcohol intake current alcohol intake frequency 0-2 drinks per day Substance Use Type marijuana Meds Home Medications and Allergies Home Medications Medication Instructions Recorded Confirmed Type aspirin 81 mg tablet,delayed 81 mg PO DAILY ##0 01/14/18 11/14/22 History release amlodipine 5 mg tablet 10 mg PO DAILY 10/31/18 11/14/22 History metoprolol succinate 25 mg 12.5 mg PO DAILY 10/31/18 11/14/22 History tablet,extended release 24 hr melatonin 10 mg tablet 10 mg PO BEDTIME PRN Insomnia 02/12/19 11/14/22 History lisinopril 40 mg tablet (Zestril) 40 mg PO DAILY #90 tabs 04/04/19 11/14/22 Rx citalopram 20 mg tablet See Rx Instructions .Route 06/12/22 11/14/22 Rx .COMPLEX #30 tabs clonazepam 0.5 mg tablet 0.5 mg PO DAILY PRN anxiety #30 09/21/22 11/14/22 Rx tabs tamsulosin 0.4 mg capsule See Rx Instructions .Route 09/26/22 11/14/22 Rx .COMPLEX #60 caps buspirone 30 mg tablet See Rx Instructions .Route 10/24/22 11/14/22 Rx .COMPLEX #30 tabs sodium,potassium,mag sulfates 17.5 See Rx Instructions PO .COMPLEX 10/24/22 Rx gram-3.13 gram-1.6 gram oral soln #354 mL (Suprep Bowel Prep Kit) Allergies Allergy/AdvReac Type Severity Reaction Status Date / Time No Known Drug Allergies Allergy Verified 11/14/22 09:22 Exam Vital Signs (past 8 hours): - 11/14/22 09:31 Temperature 98.1 F Pulse Rate 55 L Respiratory Rate 16 Blood Pressure 146/70 H Pulse Oximetry 99 Oxygen Delivery Method Room Air Oxygen Delivery Method Room Air Narrative Exam Narrative: General adult man alert oriented no acute distress Assessment & Plan Assessment & Plan narrative: The patient requires colorectal screening and colonoscopy is recommended. Technical details were discussed. Risks, benefits, alternatives explained. Risks including but not limited to myocardial infarction, aspiration, bleeding, pain, missed lesion, incomplete examination, need for further radiographic studies, colonic perforation, and need for major abdominal surgery were discussed. All questions were answered to their satisfaction, and they are in agreement with this plan. Time Spent With Patient Critical Care time: I spent a total of [] minutes of critical care time on this patient's care today; this time is exclusive of procedural time.
--- NOTE | 2022-11-14 10:05 | PM.OP.COLON ---
Operative Date/Time/Diagnoses Date of procedure: 11/14/22 Time of procedure: 10:05 Pre-op diagnosis: Personal history of colonic polyps Procedure & Clinicians Study performed: Colonoscopy Same procedure as scheduled: Yes Indications: Colorectal screening Personal history of polyps Surgeon: Ben Wong Procedure Notes Procedure in detail: The history and physical was performed/updated and the patient is ASA class is 2. The procedure was discussed in detail with the patient. Potential risks complications including infection, bleeding, missed diagnosis, perforation, need for surgery, and were explained. Their questions were answered and informed consent was obtained. Patient was brought to the procedure room and placed standard monitoring equipment. The patient's vital signs were monitored continuously throughout the entire procedure. Prior to starting time-out was performed. The patient was placed in the left lateral recumbent position. Procedural sedation was administered by anesthesia. Examination began with a thorough inspection of the perianal area there was no evidence of fissures, fistulae, external hemorrhoids or cutaneous malignancy. The colonoscopy scope was then placed into the anal canal and was advanced to the cecum, which was identified by the ileocecal valve, the appendiceal orifice and the confluence of the taenia. The scope was then slowly withdrawn examining colon thoroughly in all directions, irrigating it of any residual stool. Within the proximal rectum there was a 5 mm polyp which was removed with biopsy forceps. Retroflexion within the rectum demonstrated grade 2 internal hemorrhoids. The patient tolerated the procedure well. They will be discharged once criteria are met. The prep was of good/excellent quality. The withdrawl time was 7 minutes. Specimen(s): other (Rectal polyp) Complications: none Impression: Colonic polyp Post-procedure Recommendations: High fiber diet Plan for aftercare: Follow-up is dependent on pathology findings Disposition: same day surgery
[2022-11-14 10:28] VITALS: BP 138/60; PULSE 55; RESP 11; TEMP 37.1; O2SAT 90
[2022-11-14 10:29] VITALS: O2SAT 95
[2022-11-14 10:35] VITALS: BP 131/63; PULSE 63; RESP 18; O2SAT 95
[2022-11-14 10:38] VITALS: BP 122/54; PULSE 65; RESP 16; O2SAT 97
== END 2022-11-14 11:00 | disposition home or self-care (01) ==
PROVIDERS: PCP Family Medicine; Referring Provider Surgery; Visit Provider Surgery
PROC: 0DJD8ZZ Inspection of Lower Intestinal Tract, Via Natural or Artificial Opening Endoscopic (ICD-10-PCS; CPT 45378; principal; 2022-11-14 10:00)
DX: Z12.11 Encounter for screening for malignant neoplasm of colon (principal); Z86.010 Personal history of colon polyps; K64.1 Second degree hemorrhoids; K62.1 Rectal polyp
CPT/HCPCS: 45380; J2704

== ENCOUNTER → 2022-11-20 10:14 | Outpatient (CLI) | payer OTHER, SELFPAY ==
[2021-06-27 13:44] VITALS: BMI 36.9
[2022-11-20 11:35] LABS: Alanine Aminotransferase 21 IU/L (<50); Albumin Globulin Ratio 1.5 (1.0-2.8); Alkaline Phosphatase 64 U/L (38-126); Aspartate Aminotransferase 25 IU/L (17-59); BUN Creatinine Ratio 15.1 (6-22); Bilirubin Total 0.8 mg/dL (0.2-1.3); Blood Urea Nitrogen 13 mg/dL (9-20); Calcium 8.7 mg/dL (8.4-10.2); Carbon Dioxide 28 mmol/L (22-32); Chloride 104 mmol/L (98-107); Cholesterol 215 mg/dL (140-199); Estimated Glomerular Filt Rate > 60 mL/min (>60); Globulin 2.7 g/dL (1.7-4.1); Glucose 107 mg/dL (80-110); HDL Cholesterol 46 mg/dL (40-60); HEMOLYSIS < 15 (0-50); LDL Cholesterol Calculated 138 mg/dL (<100); Sodium 139 mmol/L (137-145); Total Protein 6.7 g/dL (6.3-8.2); Triglycerides 157 mg/dL (35-150)
== END ==
PROVIDERS: PCP Family Medicine; Referring Provider Internal Medicine Cardiovascular Disease; Visit Provider Internal Medicine Cardiovascular Disease
DX: E78.5 Hyperlipidemia, unspecified (principal)
CPT/HCPCS: 36415; 80053; 80061

== ENCOUNTER → 2022-12-01 18:04 | Outpatient (CLI) | payer OTHER, SELFPAY ==
[2021-06-27 13:44] VITALS: BMI 36.9
== END ==
PROVIDERS: PCP Family Medicine; Visit Provider Physician Assistant
DX: R35.0 Frequency of micturition (principal)
CPT/HCPCS: 87086

== ENCOUNTER → 2022-12-04 11:49 | Outpatient (CLI) | payer OTHER, SELFPAY ==
[2021-06-27 13:44] VITALS: BMI 36.9
--- NOTE | 2022-12-04 11:50 | DI.CT.S_ITS ---
PROCEDURE: CT ABDOMEN PELVIS W CON INDICATIONS: abdominal pain TECHNIQUE: After the administration of oral and intravenous contrast, axial sections were acquired from the lung bases to the pubic symphysis. Coronal and sagittal reformats were performed. For radiation dose reduction, the following was used: automated exposure control, adjustment of mA and/or kV according to patient size. COMPARISON:[facility], CT, ABDOMEN/PELVIS WITH CONTRAST, 01/29/2015, 10:06. FINDINGS: Image quality: Excellent. Lung bases: Unremarkable. Heart: Moderate coronary artery calcification. Heart size at the upper limits of normal. ABDOMEN: Liver: Mild hepatic steatosis. No focal liver mass. Gallbladder: Normal. Biliary ducts: Nondilated. Pancreas: Normal. Spleen: Normal. Adrenal Glands: No masses. Kidneys and Ureters: Symmetric enhancement. No nephrolithiasis or hydronephrosis. No hydroureter. Stomach and Bowel: Stomach, small bowel loops, and colon are unremarkable. Normal appendix. Peritoneum: No abnormal intraperitoneal fluid. No free air. Ventral Wall: No hernia. Abdominal Nodes: No retroperitoneal or mesenteric adenopathy by size criteria. Vessels: Aorta and inferior vena cava are normal in size. Mild abdominal aortic atherosclerotic calcification. PELVIS: Pelvic Organs: Mild prostatomegaly. Bladder: Normal bladder wall thickness. Pelvic Nodes: No enlarged lymph nodes. Miscellaneous: No inguinal hernias are seen. Bones: Partial SI joint ankylosis. Degenerative endplate spurring. IMPRESSION: 1. No acute process in the abdomen or pelvis. 2. Mild hepatic steatosis, similar compared to the prior study. 3. Mild prostatomegaly, stable. Dictated by: Crys Gray M.D. on 12/04/2022 at 17:53 Approved by: Crys Gray M.D. on 12/04/2022 at 17:56
== END ==
PROVIDERS: PCP Family Medicine; Referring Provider Surgery; Visit Provider Surgery
DX: K76.0 Fatty (change of) liver, not elsewhere classified (principal); N40.0 Benign prostatic hyperplasia without lower urinary tract symptoms; R10.32 Left lower quadrant pain
CPT/HCPCS: 74177; Q9967

== ENCOUNTER → 2023-04-03 08:54 | Outpatient (CLI) | payer OTHER, SELFPAY ==
[2021-06-27 13:44] VITALS: BMI 36.9
[2023-04-03 11:11] LABS: Alanine Aminotransferase 22 IU/L (<50); Albumin Globulin Ratio 1.5 (1.0-2.8); Alkaline Phosphatase 74 U/L (38-126); Aspartate Aminotransferase 25 IU/L (17-59); BUN Creatinine Ratio 16.3 (6-22); Bilirubin Total 0.8 mg/dL (0.2-1.3); Blood Urea Nitrogen 16 mg/dL (9-20); Calcium 9.3 mg/dL (8.4-10.2); Carbon Dioxide 26 mmol/L (22-32); Chloride 102 mmol/L (98-107); Estimated Glomerular Filt Rate > 60 mL/min (>60); Globulin 2.7 g/dL (1.7-4.1); Glucose 107 mg/dL (80-110); HEMOLYSIS < 15 (0-50); Potassium 4.2 mmol/L (3.4-5.1); Sodium 137 mmol/L (137-145); Total Protein 6.7 g/dL (6.3-8.2)
[2023-04-05 10:09] LABS: Cholesterol, Total 132 mg/dL (100-199); HDL-Cholesterol 49 mg/dL (>39); HDL-Particle (Total) 36.7 umol/L (>=30.5); LDL Particle 683 nmol/L (<1000); LDL Size 20.4 nm (>20.5); LDL-Cholsterol 65 mg/dL (0-99); LP-IR Score 55 (<=45); Small LDL- Particle 375 nmol/L (<=527); Triglycerides 95 mg/dL (0-149)
== END ==
PROVIDERS: PCP Family Medicine; Referring Provider Internal Medicine Cardiovascular Disease; Visit Provider Nurse Practitioner
DX: I10 Essential (primary) hypertension (principal); E78.5 Hyperlipidemia, unspecified
CPT/HCPCS: 36415; 80053; 80061; 83704

== ENCOUNTER → 2023-09-14 13:59 | Outpatient (CLI) | payer OTHER, SELFPAY ==
[2021-06-27 13:44] VITALS: BMI 36.9
[2023-09-14 15:45] LABS: Prostate Specific Antigen Scrn 2.49 ng/mL (0.1-4.0)
== END ==
PROVIDERS: PCP Family Medicine; Referring Provider Family Medicine; Visit Provider Family Medicine
DX: Z12.5 Encounter for screening for malignant neoplasm of prostate (principal)
CPT/HCPCS: 36415; G0103

== ENCOUNTER → 2024-02-28 09:56 | Outpatient (CLI) | payer OTHER, SELFPAY ==
[2021-06-27 13:44] VITALS: BMI 36.9
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
== END ==
LOC: RAD 09:57
PROVIDERS: PCP Family Medicine; Referring Provider Physician Assistant; Visit Provider Physician Assistant
DX: S92.901D Unspecified fracture of right foot, subsequent encounter for fracture with routine healing (principal); M79.671 Pain in right foot; X58.XXXD Exposure to other specified factors, subsequent encounter
CPT/HCPCS: 73630

== ENCOUNTER → 2024-05-05 11:30 | Outpatient (CLI) | payer OTHER, SELFPAY ==
[2021-06-27 13:44] VITALS: BMI 36.9
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
== END ==
LOC: MRI 11:30
PROVIDERS: PCP Family Medicine; Referring Provider Family Medicine; Visit Provider Family Medicine
DX: R42 Dizziness and giddiness (principal); S06.0XAA Concussion with loss of consciousness status unknown, initial encounter; R11.0 Nausea; R26.81 Unsteadiness on feet
CPT/HCPCS: 70551

== ENCOUNTER → 2024-05-08 08:56 | Outpatient (CLI) | payer OTHER, SELFPAY ==
[2021-06-27 13:44] VITALS: BMI 36.9
[2024-05-08 10:31] LABS: Alanine Aminotransferase 20 IU/L (<50); Albumin 4.1 g/dL (3.5-5.0); Albumin Globulin Ratio 1.5 (1.0-2.8); Alkaline Phosphatase 73 U/L (38-126); Aspartate Aminotransferase 27 IU/L (17-59); BUN Creatinine Ratio 20.9 (6-22); Blood Urea Nitrogen 19 mg/dL (9-20); Calcium 9.5 mg/dL (8.4-10.2); Carbon Dioxide 24 mmol/L (22-32); Chloride 108 mmol/L (98-107); Estimated Glomerular Filt Rate > 60 mL/min (>60); Globulin 2.7 g/dL (1.7-4.1); Glucose 99 mg/dL (80-110); HEMOLYSIS < 15 (0-50); Magnesium 2.2 mg/dL (1.6-2.3); Potassium 4.3 mmol/L (3.4-5.1); Sodium 137 mmol/L (137-145); Total Protein 6.8 g/dL (6.3-8.2)
[2024-05-08 11:02] LABS: Thyroid Stimulating Hormone 2.34 uIU/mL (0.47-4.68)
== END ==
LOC: LAB 08:58
PROVIDERS: PCP Family Medicine; Referring Provider Internal Medicine Cardiovascular Disease; Visit Provider Internal Medicine Cardiovascular Disease
DX: I10 Essential (primary) hypertension (principal); R00.2 Palpitations; E78.5 Hyperlipidemia, unspecified
CPT/HCPCS: 36415; 80053; 80061; 83704; 83735; 84443

== ENCOUNTER → 2024-05-14 15:26 | Outpatient (CLI) | payer OTHER, SELFPAY ==
[2021-06-27 13:44] VITALS: BMI 36.9
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
== END ==
PROVIDERS: PCP Family Medicine; Referring Provider Physician Assistant; Visit Provider Physician Assistant
DX: S06.0XAA Concussion with loss of consciousness status unknown, initial encounter (principal); M47.812 Spondylosis without myelopathy or radiculopathy, cervical region; M54.2 Cervicalgia; M62.838 Other muscle spasm; V18.0XXA Pedal cycle driver injured in noncollision transport accident in nontraffic accident, initial encounter
CPT/HCPCS: 72050

== ENCOUNTER → 2024-05-27 19:24 | Outpatient (CLI) | payer OTHER, SELFPAY ==
[2021-06-27 13:44] VITALS: BMI 36.9
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
== END ==
PROVIDERS: PCP Family Medicine; Referring Provider Physician Assistant; Visit Provider Physician Assistant
DX: S06.0XAA Concussion with loss of consciousness status unknown, initial encounter (principal); M50.31 Other cervical disc degeneration, high cervical region; M48.02 Spinal stenosis, cervical region; M47.812 Spondylosis without myelopathy or radiculopathy, cervical region; M62.838 Other muscle spasm; X58.XXXA Exposure to other specified factors, initial encounter
CPT/HCPCS: 72141

== ENCOUNTER → 2024-07-04 08:01 | Outpatient (CLI) | payer OTHER, SELFPAY ==
[2021-06-27 13:44] VITALS: BMI 36.9
--- NOTE | 2024-07-04 | DI.ECHO.S_ITS ---
[facility]+ [facility] : : [address] : : [place] : : [id number] : : Phone: [phone] Echocardiogram Report + + :Name: MERARY RYDER Study Date: 07/04/2024 Height: 69 in : :[facility] ReadingLocation: Weight: 240 lb : : Gender: Male BSA: 2.2 m2 : :: 1955 Age: 69 yrs BP: 121/89 mmHg: :Reason For Study: PALPITATIONS : :Ordering Physician: MINO, : :LATRICIA Performed By: Nadya Osorio : :Referring: LATRICIA HERZOG : + + Interpretation Summary The left ventricle is normal in size and wall thickness. The ejection fraction is estimated to be 55-60%. There has been no significant change in LVEF since the previous exam. Diastolic parameters suggest a relaxation abnormality of the left ventricle, consistent with probable normal filling pressures. Previously pseudonormalization type of diastolic dysfunction. The right ventricle is normal in size and function. There is mild mitral regurgitation. There is mild pulmonic regurgitation. Overall no significant valvular pathology. The IVC is of normal diameter and collapses greater than 50% with a sniff. This suggests a low right atrial pressure of 3 mm Hg. Procedure: A two-dimensional transthoracic echocardiogram with color flow and Doppler was performed. The study quality was technically adequate. Comparison is made with the echocardiogram of 12/06/2017. The patient was in sinus bradycardia with heart rates between 47-58 bpm during the exam. Left Ventricle: The left ventricle is normal in size and wall thickness. There is no thrombus. The ejection fraction is estimated to be 55-60%. There has been no significant change since the previous exam. There are no focal wall motion abnormalities. Diastolic parameters suggest a relaxation abnormality of the left ventricle, consistent with probable normal filling pressures. Previously pseudonormalization type of diastolic dysfunction. Right Ventricle: The right ventricle is normal in size and function. Atria: The left atrial size is normal. Right atrial size is normal. There is no Doppler evidence for an interatrial shunt. Mitral Valve: There is mild mitral annular calcification. There is mild mitral regurgitation. Aortic Valve: The aortic valve is trileaflet. The aortic valve opens well. There is no aortic valve stenosis. No aortic regurgitation is present. Tricuspid Valve: The tricuspid valve is normal in structure and function. There is trace tricuspid regurgitation. Pulmonary artery pressures cannot be estimated because of the lack of a measurable TR jet velocity. Pulmonic Valve: The pulmonic valve is not well seen, but is grossly normal. There is mild pulmonic regurgitation. Great Vessels: The aortic root is normal size. The dimensions of the ascending aorta are normal. The IVC is of normal diameter and collapses greater than 50% with a sniff. This suggests a low right atrial pressure of 3 mm Hg. Pericardium/ Pleura There is no pericardial effusion. There is no pleural effusion. MMode/2D Measurements & Calculations LVIDd: 5.8 cm LVOT diam: 2.0 cm LVIDs: 3.5 cm Ao root diam: 3.1 cm FS: 38.8 % asc Aorta Diam: 3.2 cm EPSS: 0.86 cm Ao Arch Diam (Prox Trans): 2.7 cm IVSd: 0.87 cm LVPWd: 0.82 cm LV bautista. diameter/BSA (cm/m^2): 2.6 LV sys. diameter/BSA (cm/m^2): 1.6 LA A2 area: 23.1 cm2 RA long axis: 5.0 cm LA A4 area: 17.4 cm2 RA area: 17.2 cm2 LA length (vol): 5.1 cm RA vol: 50.2 ml LA vol: 66.9 ml RA : 22.5 ml/m2 LA vol index: 30.0 ml/m2 IVC diam: 1.4 cm RVD1 (basal): 3.8 cm RVD2 (mid): 2.9 cm TAPSE: 2.9 cm Doppler Measurements & Calculations Ao V2 max: 154.7 cm/sec LVOT Max Yemi: 81.2 cm/sec Ao V2 mean: 109.9 cm/sec LV V1 max P.6 mmHg Ao max P.6 mmHg LV V1 VTI: 19.3 cm Ao mean P.3 mmHg TIFFANIE(I,D): 1.7 cm2 Ao V2 VTI: 36.4 cm TIFFANIE(V,D): 1.6 cm2 sev ratio: 0.53 TIFFANIE indexed to BSA (cm^2/m^2): 0.74 MV E max yemi: 65.0 cm/sec PA V2 max: 91.2 cm/sec MV A max yemi: 67.5 cm/sec PA V2 mean: 60.7 cm/sec MV E/A: 0.96 PA mean P.7 mmHg Med Peak E' Yemi: 6.0 cm/sec PA pr(Accel): 36.2 mmHg E/E' med: 10.8 Lat Peak E' Yemi: 8.7 cm/sec E/E' lat: 7.5 E/e' average: 9.1 MV dec time: 0.36 sec SV([facility]): 60.3 ml Reading Physician:03:56 PM
== END ==
PROVIDERS: PCP Family Medicine; Referring Provider Internal Medicine Cardiovascular Disease; Visit Provider Internal Medicine Cardiovascular Disease
DX: I34.81 Nonrheumatic mitral (valve) annulus calcification (principal); I34.0 Nonrheumatic mitral (valve) insufficiency; I37.1 Nonrheumatic pulmonary valve insufficiency; R00.2 Palpitations; R42 Dizziness and giddiness
CPT/HCPCS: 93306

== ENCOUNTER → 2025-06-24 08:53 | Outpatient (CLI) | payer OTHER, SELFPAY ==
[2021-06-27 13:44] VITALS: BMI 36.9
[2025-06-24 09:48] LABS: Add Manual Diff / Slide Review NO; Hematocrit 45.8 % (41-53); Hemoglobin 15.6 g/dL (13.5-17.5); Lymphocytes Absolute Auto 2300 /uL (1100-4500); Mean Corpuscular HGB Conc 34.1 % (30-36); Mean Corpuscular Hemoglobin 30.1 PG (26-34); Mean Corpuscular Volume 88.2 fL (80-100); Platelet Count 205 X10^3/uL (150-400)
[2025-06-24 10:07] LABS: Alanine Aminotransferase 21 IU/L (<50); Albumin 4.3 g/dL (3.5-5.0); Albumin Globulin Ratio 1.7 (1.0-2.8); Alkaline Phosphatase 76 U/L (38-126); Blood Urea Nitrogen 19 mg/dL (9-20); Calcium 9.5 mg/dL (8.4-10.2); Carbon Dioxide 25 mmol/L (22-32); Chloride 106 mmol/L (98-107); Cholesterol 252 mg/dL (140-199); Estimated Glomerular Filt Rate > 60 mL/min (>60); Globulin 2.6 g/dL (1.7-4.1); Glucose 97 mg/dL (70-99); HDL Cholesterol 53 mg/dL (40-60); HEMOLYSIS < 15 (0-50); Potassium 4.0 mmol/L (3.4-5.1); Sodium 140 mmol/L (137-145); Total Protein 6.9 g/dL (6.3-8.2); Triglycerides 196 mg/dL (35-150)
[2025-06-24 10:36] LABS: TSH w/ Reflex to FT4 4.36 uIU/mL (0.47-4.68)
== END ==
PROVIDERS: PCP Family Medicine; Referring Provider Family Medicine; Visit Provider Family Medicine
DX: N13.8 Other obstructive and reflux uropathy (principal); I25.10 Atherosclerotic heart disease of native coronary artery without angina pectoris; Z12.5 Encounter for screening for malignant neoplasm of prostate; I10 Essential (primary) hypertension; N40.1 Benign prostatic hyperplasia with lower urinary tract symptoms; E66.9 Obesity, unspecified
CPT/HCPCS: 36415; 80053; 80061; 84443; 85025; G0103

== ENCOUNTER 2025-08-07 16:38 | Emergency (ER) | payer OTHER, MEDICARE, SELFPAY ==
[2021-06-27 13:44] VITALS: BMI 36.9
[2025-08-07] VITALS (11 sets, daily range): BP systolic 139–191; BP diastolic 63–79; PULSE 43–59; RESP 12–24; TEMP 36.9; O2SAT 97–100; BMI 36.1
--- NOTE | 2025-08-07 16:46 | ED.CHESTPAIN ---
HPI - Chest Pain General Chief Complaint: Chest Pain Stated Complaint: Cardiology issues; sent by phys Time Seen by Provider: 08/07/25 16:44 History of Present Illness HPI narrative: Is a 70-year-old male with a history DC status post to statins, follows with Dr. Wilkerson of Cardiology, comes into the ED from home for evaluation of left-sided chest pain ongoing persistent for the past week worse yesterday, states that he called his desktop technician's office informed to come into the ED. he denies any other symptoms such as headache visual disturbance shortness breath fever chills nausea vomiting abdominal pain or any other GI/ symptoms time Related Data Home Medications ?Medication ?Instructions ?Recorded ?Confirmed aspirin 81 mg tablet,delayed 81 mg PO DAILY ##0 01/14/18 06/01/25 release metoprolol succinate 25 mg 12.5 mg PO DAILY 10/31/18 06/01/25 tablet,extended release 24 hr melatonin 10 mg tablet 10 mg PO BEDTIME PRN Insomnia 02/12/19 06/01/25 amlodipine 10 mg tablet 10 mg PO DAILY 06/01/25 06/01/25 Previous Rx's ?Medication ?Instructions ?Recorded tamsulosin 0.4 mg capsule 0.4 - 0.8 mg (1 - 2 x 0.4 mg) PO 05/27/25 ONCE PM for dysuria #180 caps doxepin 10 mg capsule 10 mg PO DAILY #30 caps 06/01/25 hydroxyzine HCl 25 mg tablet 25 mg PO TID PRN for anxiety #90 06/23/25 tabs Allergies Allergy/AdvReac Type Severity Reaction Status Date / Time No Known Drug Allergies Allergy Verified 06/01/25 11:46 Review of Systems Review of Systems Narrative: General: Denies fever, chills, weight loss HEENT: Denies headache, eye drainage, eye irritation, head trauma, sore throat, voice change Cardiovascular: Positive chest pain, denies palpitations, tachycardia Respiratory: Denies any shortness of breath, cough, wheeze, stridor GI/: Denies any abdominal pain, nausea, vomiting, diarrhea, bright red blood per rectum, melanotic stools, urinary frequency, urinary retention, dysuria, hematuria MSK: Denies any joint pain, muscle pains, swelling Skin: Denies any rashes, lesions, discoloration Neuro: Denies any headache, lightheadedness, dizziness, fainting, weakness Psych: Denies SI/HI Patient History Medical History (Updated 08/07/25 @ 20:39 by Luis Adkins DO) BPH w urinary obs/LUTS Obesity (BMI 30-39.9) Obstructive sleep apnea (08/16/11) Hyperlipidemia Coronary artery disease (~11/2017) Generalized anxiety disorder (09/26/17) Neuropathy (12/11/14) Hypertension (03/02/14) Major depressive disorder (08/16/11) Surgical History Stented coronary artery Status post arthroscopy Family History Sister Hypertension Social History marital status: number of children: 3 household members: spouse Smoking Status: Former smoker alcohol intake: current substance use type: does not use caffeine: Yes tobacco type: vaping alcohol intake frequency: 0-2 drinks per day Exam Narrative Exam Narrative: General: Cooperative, well-developed, not in acute distress HEENT: Normocephalic, atraumatic, PERRLA, normal sclera, eyelids normal Neck: Active full range of motion, atraumatic Chest: Normal to inspection, negative crepitus, no overlying erythema ecchymosis Respiratory: Normal respiratory effort, not in acute respiratory distress, clear to auscultation bilaterally negative cough, wheeze, tachypnea, rhonchi, rales Cardiology: Regular rate rhythm negative gallop, murmur, rubs GI/: No tenderness to palpation, soft, non rigid, normal to inspection, exam deferred MSK: Full active range of motion in all 4 extremities, atraumatic, no tenderness to palpation of any bony prominences Skin: No rashes or lesions noted Neuro: Alert awake oriented x3, moves all 4 extremities spontaneously, cranial nerves intact, able to answer all questions appropriately follows commands appropriately Psych: Cooperative, negative suicidal or homicidal ideations Initial Vital Signs Initial Vital Signs: Vital Signs Temperature 98.5 F 08/07/25 16:46 Pulse Rate 59 L 08/07/25 16:46 Respiratory Rate 16 08/07/25 16:46 Blood Pressure 191/79 H 08/07/25 16:46 Pulse Oximetry 99 08/07/25 16:46 Oxygen Delivery Method Room Air 08/07/25 16:46 Course Orders Ordered: ED Orders 08/07/25 16:47 XR chest 1V Stat EKG-12 Lead Stat 08/07/25 17:02 Complete Blood Count AUTO DIFF Stat Comprehensive Metabolic Panel Stat Lipase Stat Magnesium Stat NT-proBNP (BNP-Adult 18+) Stat PTT Partial Thromboplastin Demetrius Stat Prothrombin Time INR Stat Troponin I Stat 08/07/25 19:20 Trop I [Troponin I] Stat Discontinued Medications Morphine Sulfate (Morphine 4 Mg/Ml Inj) 4 mg IV NOW ONE Stop: 08/07/25 16:49 Last Admin: 08/07/25 17:34 Dose: Not Given Documented By: AIDA Ondansetron HCl (Ondansetron 4 Mg/2 Ml Inj) 4 mg IV NOW ONE Stop: 08/07/25 16:49 Last Admin: 08/07/25 17:34 Dose: Not Given Documented By: AIDA Vital Signs Vital signs: Vital Signs - 8 hr 08/07/25 16:46 08/07/25 17:59 08/07/25 18:13 Temperature 98.5 F Pulse Rate 59 L 48 L Respiratory Rate 16 15 Blood Pressure 191/79 H 145/65 H 143/63 H Pulse Oximetry 99 100 Oxygen Delivery Method Room Air Room Air 08/07/25 18:17 08/07/25 18:30 08/07/25 18:30 Temperature Pulse Rate 48 L 44 L Respiratory Rate 24 15 Blood Pressure 139/65 Pulse Oximetry 97 97 Oxygen Delivery Method 08/07/25 19:09 08/07/25 19:11 08/07/25 19:11 Temperature Pulse Rate 48 L 45 L Respiratory Rate 13 Blood Pressure 148/63 H Pulse Oximetry 97 Oxygen Delivery Method 08/07/25 19:30 08/07/25 19:31 08/07/25 19:31 Temperature Pulse Rate 43 L 43 L Respiratory Rate 15 12 Blood Pressure 146/66 H Pulse Oximetry 97 97 Oxygen Delivery Method MDM - Chest Pain Lab Data 08/07/25 17:02 08/07/25 17:02 Labs: Lab Results 08/07/25 08/07/25 Range/Units 17:02 19:20 WBC 8.2 (4.5-11.0) X10^3/uL RBC 5.06 (4.5-5.9) X10^6/uL Hgb 15.2 (13.5-17.5) g/dL Hct 44.4 (41-53) % MCV 87.7 (80-100) fL MCH 30.0 (26-34) PG MCHC 34.2 (30-36) % RDW 13.8 (11.6-14.8) % Plt Count 229 (150-400) X10^3/uL Neut % (Auto) 63.5 (50-75) % Lymph % (Auto) 27.4 (25-40) % [place] % (Auto) 7.2 (3-14) % Eos % (Auto) 1.0 L (2-4) % Baso % (Auto) 0.9 (0-2) % Neut # (Auto) 5200 (8089-6829) /uL Lymph # (Auto) 2200 (9553-8460) /uL [place] # (Auto) 600 (0-900) /uL Eos # (Auto) 100 (0-450) /uL Baso # (Auto) 100 (0-100) /uL PT 11.0 (9.4-12.5) SECONDS INR 1.0 (0.9-1.3) APTT 34 (25.1-36.5) SECONDS Sodium 140 (137-145) mmol/L Potassium 4.6 (3.4-5.1) mmol/L Chloride 106 (98-107) mmol/L Carbon Dioxide 25 (22-32) mmol/L BUN 19 (9-20) mg/dL Creatinine 0.96 (0.66-1.25) mg/dL Estimated GFR > 60 (>60) mL/min BUN/Creatinine Ratio 19.8 (6-22) Glucose 99 (70-99) mg/dL Calcium 9.3 (8.4-10.2) mg/dL Magnesium 2.1 (1.6-2.3) mg/dL Total Bilirubin 0.8 (0.2-1.3) mg/dL AST 36 (17-59) IU/L ALT 21 (<50) IU/L Alkaline Phosphatase 64 (38-126) U/L Troponin I 0.018 < 0.012 (0.01-0.034) ng/mL NT-Pro-B Natriuret Pep 58 (<125) pg/mL Total Protein 7.3 (6.3-8.2) g/dL Albumin 4.4 (3.5-5.0) g/dL Globulin 2.9 (1.7-4.1) g/dL Albumin/Globulin Ratio 1.5 (1.0-2.8) Lipase 92 (23-300) U/L ECG Data Interpretation: EKG interpreted ED physician sinus 62 beats per minute QTC 411, QRS [place] interval within normal limits, no STEMI MDM Narrative Medical decision making narrative: 70-year-old male past medical history DC with stent x2 follows with Dr. Wilkerson (desktop technician) comes into the ED from home for evaluation of chest pain ongoing persistent for the past few days, states it worse last night, did try taking nitro x2 without much relief, also did take a full-dose aspirin prior to arrival. Patient did have cardiac workup performed in the emergency department, EKG nonischemic, troponin negative x2, patient without any active chest pain. Patient without any acute cardiopulmonary abnormality on chest x-ray. Lab work otherwise unremarkable. I did offer patient admission versus transfer for chest pain workup, given patient with a heart score of 4, however he states he has an appointment with his desktop technician in August, he states that he would rather go home and follow up in an outpatient setting, was given strict return precautions he verbalized understanding of this and agrees to being discharged home with outpatient follow up Discharge Plan Departure Patient Disposition: Home Clinical Impression: Chest pain Instructions: DI for Chest Pain Activity Restrictions/Additional Instructions: Please follow up with your desktop technician and your primary care doctor Please read the discharge instructions sheet carefully and bring all papers to all doctor follow-up visits, as it may contain information that your doctor may want to see. Disease processes change and evolve, if your symptoms worsen or if you develop any new symptoms that are concerning to you please return for evaluation. Your evaluation today does not show any evidence of any life-threatening/serious illnesses requiring admission to the hospital or surgery. Please follow-up with your doctor for re-evaluation in approximately 1 day. Seek immediate medical attention for any worrisome symptoms. *If you do not have a primary care provider please contact the [facility] Resource line at [phone]. They will ask some questions about your medical history and help get you set up with a doctor in the community. Prescriptions: No Action aspirin 81 MG tablet,delayed release (DR/EC) 81 mg PO DAILY Qty: 0 tamsulosin 0.4 mg capsule 0.4 - 0.8 mg PO ONCE PM Qty: 180 3RF hydroxyzine HCl 25 mg tablet 25 mg PO TID PRN (Reason: for anxiety) Qty: 90 1RF Rx Instructions: Please call PCP, due for annual med review amlodipine 10 mg tablet 10 mg PO DAILY doxepin 10 mg capsule 10 mg PO DAILY Qty: 30 1RF metoprolol succinate 25 mg Tablet Extended Release 24 Hr 12.5 mg PO DAILY melatonin 10 mg tablet 10 mg PO BEDTIME PRN (Reason: Insomnia) Referrals: Pino Pichardo MD [Primary Care Provider, Family Practice] Stand Alone Forms: Patient Portal/API
--- NOTE | 2025-08-07 16:47 | DI.RAD.S_ITS ---
PROCEDURE: XR CHEST 1V INDICATIONS: chest pain TECHNIQUE: One view of the chest was acquired. COMPARISON: [facility], CT, CT ABDOMEN PELVIS W CON, 12/04/2022, 13:26. [facility], CR, XR CHEST 1V, 10/21/2021, 16:22. FINDINGS: Surgical changes and devices: None. Lungs and pleura: Lungs are clear. No pleural effusions or pneumothorax. Mediastinum: Mediastinal contours appear normal. Heart size is normal. Atherosclerotic calcification of the aortic arch is noted. Bones and chest wall: No suspicious bony lesions. Age-appropriate bony degenerative changes are seen. Overlying soft tissues appear unremarkable. IMPRESSION: No significant portable chest abnormality is seen. Dictated by: Paolo Farrell M.D. on 08/07/2025 at 17:04 Approved by: Paolo Farrell M.D. on 08/07/2025 at 17:05
--- NOTE | 2025-08-07 16:56 | EKG_ITS ---
[address] [id number] [address] [address] Test Date: 2025-08-07 Pat Name: Cesario Zaldivar Department: [facility] Room: Gender: Male Integration Aide: ANTOINE : 1955 Requested By: Order Number: [id number] Reading MD: Alex Lovelace MD Measurements Intervals [place] Rate: 52 P: 22 NV: 152 QRS: 65 QRSD: 100 T: 45 QT: 442 QTc: 411 Interpretive Statements Sinus bradycardia Electronically Signed On 08-08-2025 8:03:19 PST by Alex Lovelace MD
[2025-08-07 17:19] LABS: INR 1.0 (0.9-1.3); Prothrombin Time 11.0 SECONDS (9.4-12.5)
[2025-08-07 17:22] LABS: PTT Partial Thromboplastin Tim 34 SECONDS (25.1-36.5)
[2025-08-07 17:23] LABS: Add Manual Diff / Slide Review NO; Hematocrit 44.4 % (41-53); Hemoglobin 15.2 g/dL (13.5-17.5); Lymphocytes Absolute Auto 2200 /uL (1100-4500); Mean Corpuscular HGB Conc 34.2 % (30-36); Mean Corpuscular Hemoglobin 30.0 PG (26-34); Mean Corpuscular Volume 87.7 fL (80-100); Platelet Count 229 X10^3/uL (150-400)
[2025-08-07 17:29] LABS: Alanine Aminotransferase 21 IU/L (<50); Albumin 4.4 g/dL (3.5-5.0); Albumin Globulin Ratio 1.5 (1.0-2.8); Alkaline Phosphatase 64 U/L (38-126); Blood Urea Nitrogen 19 mg/dL (9-20); Calcium 9.3 mg/dL (8.4-10.2); Carbon Dioxide 25 mmol/L (22-32); Chloride 106 mmol/L (98-107); Estimated Glomerular Filt Rate > 60 mL/min (>60); Globulin 2.9 g/dL (1.7-4.1); Glucose 99 mg/dL (70-99); Lipase 92 U/L (23-300); Magnesium 2.1 mg/dL (1.6-2.3); Sodium 140 mmol/L (137-145); Total Protein 7.3 g/dL (6.3-8.2)
[2025-08-07 17:41] LABS: NT-proBNP (BNP-Adult 18+) 58 pg/mL (<125); Troponin I 0.018 ng/mL (0.01-0.034)
[2025-08-07 17:44] LABS: HEMOLYSIS 108 (0-50); Potassium 4.6 mmol/L (3.4-5.1)
[2025-08-07 19:59] LABS: Troponin I < 0.012 ng/mL (0.01-0.034)
== END 2025-08-07 20:48 | disposition home or self-care (01) ==
PROVIDERS: Emergency Provider Student in an Organized Health Care Education/Training Program; PCP Family Medicine; Referring Provider Internal Medicine Cardiovascular Disease
DX: R07.9 Chest pain, unspecified (principal)
CPT/HCPCS: 36415; 71045; 80053; 83690; 83735; 83880; 84484; 85025; 85610; 85730; 93005; 99284